=== PATIENT | female | born 1940 | race Caucasian/White ===

== ENCOUNTER → 2023-07-06 12:17 | Outpatient (REF) | payer MEDICARE, SELFPAY ==
[2023-07-06 13:46] LABS: % Basophils 0.6 % (0-2); % Eosinophils 0.3 % (0-6); % Immature Granulocytes 0.2 % (0-0.5); % Lymphocytes 31.3 % (20.5-51.1); % Monocytes 8.3 % (1.7-9.3); % Neutrophils 59.3 % (42.2-75.2); Absolute Monocytes 0.5 10^3/uL (0.1-0.6); Absolute Neutrophils 3.8 10^3/uL (1.4-6.5); Hematocrit 41.2 % (37.0-47.0); Hemoglobin 13.2 g/dL (12.0-16.0); Mean Corpuscular Volume 87.5 fL (81.0-99.0); Mean Platelet Volume 10.1 fL (7.4-10.4); Nucleated Red Blood Cells % 0 %; Platelet Count 219 10^3/uL (130-400); Red Blood Cell Count 4.71 10^6/uL (4.20-5.40); Red Cell Dist. Width 14.4 % (11.5-14.5); White Blood Cell Count 6.4 10^3/uL (4.8-10.8)
[2023-07-06 14:14] LABS: ALT (SGPT) 27 U/L (0-35); AST (SGOT) 35 U/L (14-36); Albumin 4.8 g/dl (3.5-5.0); Alkaline Phosphatase 71 U/L (38-126); Blood Urea Nitrogen 18 mg/dl (7-17); Calcium 9.4 mg/dl (8.4-10.2); Carbon Dioxide 29 mmol/L (22-30); Chloride 99 mmol/L (98-107); Glucose 92 mg/dl (70-99); HDL Cholesterol 83 mg/dl; LDL Cholesterol, Calculated 38 mg/dl; Phosphorus 3.5 mg/dl (2.5-4.5); Potassium 3.7 mmol/L (3.5-5.1); Sodium 140 mmol/L (135-145); Total Bilirubin 0.5 mg/dl (0.2-1.3); Total Cholesterol 138 mg/dl (50-199); Total Protein 7.6 g/dl (6.3-8.2); Triglyceride 88 mg/dl (10-149); Very Low Density Lipoprotein 17 mg/dl (0-30)
[2023-07-06 14:19] LABS: C-Reactive Protein < 5.00 mg/L (0.0-10.00)
[2023-07-06 14:38] LABS: Erythrocyte Sed Rate 12 mm/hour (0-20)
== END ==
LOC: REG 12:17
PROVIDERS: ATTENDING PHYSICIAN Internal Medicine Rheumatology; FAMILY PHYSICIAN Physician Assistant Medical; OTHER PHYSICIAN Internal Medicine Cardiovascular Disease
DX: E78.00 Pure hypercholesterolemia, unspecified (principal); H34.232 Retinal artery branch occlusion, left eye; Z95.3 Presence of xenogenic heart valve; I50.30 Unspecified diastolic (congestive) heart failure; E87.6 Hypokalemia; M06.00 Rheumatoid arthritis without rheumatoid factor, unspecified site; M81.0 Age-related osteoporosis without current pathological fracture
CPT/HCPCS: 36415; 80053; 80061; 84100; 85025; 85652; 86140

== ENCOUNTER 2023-07-23 18:54 | Emergency (ER) | payer MEDICARE, SELFPAY ==
[2023-07-23 18:57] VITALS: BP 92/50; BMI 26.5
[2023-07-23 19:51] LABS: % Basophils 0.5 % (0-2); % Eosinophils 0.9 % (0-6); % Immature Granulocytes 0.5 % (0-0.5); % Lymphocytes 31.4 % (20.5-51.1); % Monocytes 9.7 % (1.7-9.3); Absolute Eosinophils 0.1 10^3/uL (0-0.7); Absolute Monocytes 0.6 10^3/uL (0.1-0.6); Absolute Neutrophils 3.7 10^3/uL (1.4-6.5); Hematocrit 36.5 % (37.0-47.0); Hemoglobin 12.4 g/dL (12.0-16.0); Mean Corpuscular Hgb 28.6 pg (27.0-31.0); Mean Corpuscular Volume 84.3 fL (81.0-99.0); Mean Platelet Volume 9.9 fL (7.4-10.4); Nucleated Red Blood Cells % 0 %; Platelet Count 170 10^3/uL (130-400); Red Blood Cell Count 4.33 10^6/uL (4.20-5.40); Red Cell Dist. Width 14.8 % (11.5-14.5); White Blood Cell Count 6.4 10^3/uL (4.8-10.8)
--- NOTE | 2023-07-23 19:54 | ED.GENMED ---
History of Present Illness
General
Chief Complaint: Urinary Symptoms
Source: patient and family
Exam Limitations: none
Time Seen by Provider: 07/23/23 19:18
Travel History
Have you had any contact with someone who has COVID-19?: No
Do you have any symptoms of coronavirus? Fever > 100 degrees, chills, cough, shortness of breath, sore throat, loss of taste or smell, muscle aches, or headache?: No
History of Present Illness
History of Present Illness:
82-year-old female presents with hematuria. Patient states that she had it about 7 days ago and was placed on an antibiotic. She was placed on Macrobid. It seemed to improve but then came back. During exam she does note some bruising to her
legs. Patient denies headache. No hemoptysis. She also denies dysuria. No urinary frequency. Patient is on aspirin and Plavix. She denies melena or hematochezia.
Past History
Past History
ED Past Medical History: Cancer, CVA, GERD, HTN, Hypercholesterolemia, [place] and Valvular disease
ED Past Surgical History: Cardiac, Gynecological, Orthopedic (Bilateral total knee replacements, left rotator cuff repair) and Other (Carotid endarterectomy)
Social History
Tobacco: Non-smoker
Alcohol: None
Drug: None
Personal:
Living: with family
Family History
Family History: Unable to obtain
Phy Exam
Physical Exam
Physical Exam:
CONSTITUTIONAL Patient alert and oriented to person, place and time. Well-appearing. Vital signs reviewed.
HEAD atraumatic, normocephalic.
EYES eyelids normal to inspection, Pupils equally round and reactive to light, Extraocular muscles intact, Conjunctiva normal, Sclera normal.
NECK normal range of motion, Trachea midline, no jugular venous distention.
RESPIRATORY CHEST No respiratory distress noted, Chest expansion equal
ABDOMEN abdomen nontender, Bowel sounds normal. No distention.
BACK no obvious deformities
UPPER EXTREMITY range of motion normal, Motor strength normal, no cyanosis, no edema.
LOWER EXTREMITY range of motion normal, Motor strength normal, no cyanosis, no edema.
NEURO Speech normal, No focal motor deficits, Preston coma scale 15, Memory normal, Cranial Nerves intact to screening exam.
SKIN skin warm, dry. She does have noted areas of bruising throughout the lower extremities. She also is a large left buttocks hematoma. She has some bruising near her coccyx bone.
Course
Orders/Labs/Results
Orders:
Orders
07/23/23 19:46
Complete Blood Count/With Diff Urgent
Comprehensive Metabolic Panel Urgent
PT/INR [Prothrombin Time] Stat
PTT Stat
07/23/23 20:09
CT Abd/pel Without Iv Or Oral Urgent
Comment:
Reason For Exam: painless hematuria
07/23/23 22:31
Urinalysis Reflex To Culture Urgent
Date Specimen was Collected: 07/23/23
Time Specimen was Collected: 22:29
Urine Microscopic Reflex Cult Urgent
Urine Culture Urgent
SAEED Source: U
Specimen Description:
Date Specimen was Collected: 07/23/23
Time Specimen was Collected: 22:29
Abnormal Lab Results
07/23/23 07/23/23
19:46 22:31
Hct 36.5 L %
(37.0-47.0)
RDW 14.8 H %
(11.5-14.5)
Monocytes % 9.7 H %
(1.7-9.3)
BUN 27 H mg/dl
(7-17)
Creatinine 1.3 H mg/dL
(0.6-1.0)
Glucose 108 H mg/dl
(70-99)
Urine Ketones 1+ A
(Negative)
Ur Occult Blood Reflex 4+ A
(Negative)
Urine Bilirubin 1+ A
(Negative)
Leukocyte Esterase Rfl 1+ A
(Negative)
Urine RBC >100 A /HPF
(0-2)
Urine Glucose 3+ A
(Negative)
Urine Albumin (Reflex) 3+ A
(Neg - Trace)
07/23/23 19:46
07/23/23 19:46
Vital Signs
Initial and Last Documented VS:
Initial Vital Signs
Temp Pulse Resp BP Pulse Ox
97.8 F 60 16 92/50 98
07/23/23 18:57 07/23/23 18:57 07/23/23 18:57 07/23/23 18:57 07/23/23 18:57
Last Documented Vital Signs
Temp Pulse Resp BP Pulse Ox
97.8 F 60 16 118/44 98
07/23/23 18:57 07/23/23 18:57 07/23/23 18:57 07/23/23 22:26 07/23/23 18:57
MDM/Problems Addressed
Differential Diagnosis Includes:
Thrombocytopenia, coagulopathy, blood disorder, bleeding disorder, UTI
MDM/Problems Addressed:
Nephrolithiasis
*Radiology
Radiology exam reviewed: radiology read reviewed
*Pulse Oximetry
Patient hypoxic: no
*Critical Care Note
Total Time (30-74mins, 75-104mins- exclusive of procedures): Not Applicable
Data Reviewed
Source: patient
Prescriptions/Medications Considered But Not Given:
Considered IV antibiotics with patient overall appears well and afebrile
Patient Management
Discussion with other providers: Web Content Developer (Case discussed with Dr Hobson. recommends hold Plavix, cont ASA. will cover with abx. )
Escalation/DeEscalation of care consider admission/obs:
Stable. Cover with antibiotics. Case discussed with urology.
ED Attending Note
-
Portions of this chart may have been created with voice recognition software.� Occasional wrong word or��sound alike� substitutions may have occurred due to the inherent limitations of voice recognition software.
Discharge Plan
Departure
Patient Disposition: Home (Routine Discharge)
Date of Disposition: 07/23/23
Time of Disposition: 23:34
Patient with high blood pressure during this ER visit?: No
Discharge Problem:
Hematuria, Nephrolithiasis
Instructions: Kidney Stones (DC), Blood in the Urine (Hematuria), Adult (DC)
Prescriptions:
New
cefuroxime axetil 250 mg tablet
250 mg PO BID 7 Days Qty: 14 0RF
No Action
metoprolol succinate 25 MG tablet extended release 24 hr
25 mg PO HS
hydroxychloroquine 200 MG tablet
200 mg PO BID
rosuvastatin 10 MG tablet
10 mg PO DAILY
cholecalciferol (vitamin D3) 2,000 UNITS tablet
2,000 units PO DAILY
acetaminophen 325 MG tablet
325 mg PO Q6H PRN (Reason: moderate pain) Qty: 30 0RF
furosemide 40 mg Tablet
40 mg PO DAILY Qty: 30 0RF
clopidogrel 75 MG tablet
75 mg PO DAILY Qty: 30 1RF
aspirin 81 MG tablet,delayed release (DR/EC)
81 mg PO DAILY Qty: 0 0RF
Referrals:
Naty Mcclelland PA-C [Family Provider] -
Cheo Hobson MD [Active] -
Activity Restrictions/Additional Instructions:
Please see your doctor and urology in the next 3 days for follow-up and reevaluation. Please hold your Plavix until your bloody urine resolves. Return immediately for intractable vomiting, pain, fevers or any other concerns
Interventions
Interventions:
*Risk Screen - Suicide Last Done: 07/23/23 18:57
*General Assessment Last Done: 07/23/23 19:47
*Neglect/Abuse Screening Last Done: 07/23/23 18:57
ED- Fall Risk Assessment Last Done: 07/23/23 23:02
*ED COVID-19 Vaccine History Last Done: 07/23/23 18:57
ED-Female Genitourinary Assessment Last Done: 07/23/23 19:48
Discharge Date and Time
Print Language: NAMIBIAN
[2023-07-23 20:01] LABS: INR 1.06; PT 13.7 Sec (11.4-14.6)
[2023-07-23 20:02] LABS: APTT 29.2 Sec (23.4-35.0)
[2023-07-23 20:04] LABS: ALT (SGPT) 21 U/L (0-35); AST (SGOT) 33 U/L (14-36); Albumin 4.5 g/dl (3.5-5.0); Alkaline Phosphatase 61 U/L (38-126); Blood Urea Nitrogen 27 mg/dl (7-17); Calcium 9.8 mg/dl (8.4-10.2); Carbon Dioxide 29 mmol/L (22-30); Chloride 98 mmol/L (98-107); Estimated Creatinine Clearance 31 ml/min; Glucose 108 mg/dl (70-99); Sodium 136 mmol/L (135-145); Total Bilirubin 0.6 mg/dl (0.2-1.3); eGFR 41.57
[2023-07-23 22:26] VITALS: BP 118/44
[2023-07-23 22:39] LABS: Urine Albumin 3+ (Neg - Trace); Urine Bilirubin 1+ (Negative); Urine Character Slightly Cloudy (Clear); Urine Color Amber; Urine Glucose 3+ (Negative); Urine Ketone 1+ (Negative); Urine Leukocyte 1+ (Negative); Urine Nitrite Negative (Negative); Urine Occult Blood 4+ (Negative); Urine Urobilinogen Negative (Neg - 1+)
[2023-07-23 22:47] LABS: Urine Red Blood Cell >100 /HPF (0-2)
[2023-07-24] MEDS: CEFTIN 500 MG PO (00:22)
== END 2023-07-24 00:37 | disposition home or self-care (01) ==
LOC: EMR 18:54
PROVIDERS: EMERGENCY PHYSICIAN Emergency Medicine; FAMILY PHYSICIAN Physician Assistant Medical
DX: R31.9 Hematuria, unspecified (principal); N20.0 Calculus of kidney; K21.9 Gastro-esophageal reflux disease without esophagitis; I10 Essential (primary) hypertension; E78.00 Pure hypercholesterolemia, unspecified; I25.2 Old myocardial infarction; I38 Endocarditis, valve unspecified; Z79.02 Long term (current) use of antithrombotics/antiplatelets; Z79.82 Long term (current) use of aspirin; Z86.73 Personal history of transient ischemic attack (TIA), and cerebral infarction without residual deficits; Z96.653 Presence of artificial knee joint, bilateral
CPT/HCPCS: 99284; 74176; 80053; 81003; 81015; 85025; 85610; 85730; 87086

== ENCOUNTER 2023-08-02 06:55 | Day surgery (SDC) | payer MEDICARE, SELFPAY ==
[2023-08-02] VITALS (8 sets, daily range): BP systolic 97–113; BP diastolic 44–68; BMI 28.4
[2023-08-02] MEDS: NORMOSOL-R 1000 IV (13:16)
[2023-08-02] MEDS: TYLENOL 1000 MG PO (13:16)
[2023-08-02] MEDS: Pyridium 200 MG PO (14:57)
[2023-08-02] MEDS: DETROL LA 4 MG PO (14:57)
== END 2023-08-02 16:20 | disposition home or self-care (01) ==
LOC: SDS 06:55
PROVIDERS: ATTENDING PHYSICIAN Surgery
DX: N13.30 Unspecified hydronephrosis (principal); Z87.442 Personal history of urinary calculi
CPT/HCPCS: 52332; 74018; 76000; A4300; C1758; C1769; C1894; C2617

== ENCOUNTER 2023-08-03 15:15 | Inpatient (IN) | payer MEDICARE, SELFPAY ==
[2023-08-03] VITALS (16 sets, daily range): BP systolic 85–143; BP diastolic 39–80; BMI 28.5; BMI 30.2
--- NOTE | 2023-08-03 09:51 | ED.GENMED ---
History of Present Illness
General
Chief Complaint: Post Operative Problem(s)
Source: patient
Exam Limitations: none
Time Seen by Provider: 08/03/23 09:28
Travel History
Have you had any contact with someone who has COVID-19?: No
Do you have any symptoms of coronavirus? Fever > 100 degrees, chills, cough, shortness of breath, sore throat, loss of taste or smell, muscle aches, or headache?: No
History of Present Illness
History of Present Illness:
Patient with right laser ureteral stone surgery yesterday with stent placement. Ongoing hematuria. Passing clots. Not improving today. No fever or chills. No significant abdominal pain. Some vague back pain.
Past History
Past History
ED Past Medical History: Cancer, CVA, GERD, HTN, Hypercholesterolemia, [place] and Valvular disease
ED Past Surgical History: Cardiac, Gynecological, Orthopedic (Bilateral total knee replacements, left rotator cuff repair) and Other (Carotid endarterectomy)
Social History
Tobacco: Non-smoker
Alcohol: None
Drug: None
Personal:
Living: with family
Family History
Family History: Unable to obtain
Review of Systems
Review of Systems
All Other Systems: Not applicable
Constitutional: Denies fever or chills
Respiratory: Reports no symptoms
Cardiac: Reports no symptoms
Phy Exam
Physical Exam
Physical Exam:
GENERAL: Alert and oriented in no apparent distress
EYE: Orbits normal.
NECK: Supple
CARDIAC: Regular rate and rhythm without any obvious murmurs.
LUNGS: Clear breath sounds,normal
ABDOMEN: Soft, bowel sounds present. Questionable minimal pubic fullness. No rebound or guarding no mass or hernia
NEUROLOGICAL: Alert and oriented , grossly non-focal
SKIN: Warm and dry, no rash or lesion, no discoloration, skin intact.
MUSCULOSKELETAL: No edema,no deformity.Good color
PSYCH: Normal and appropriate interaction.
Course
Orders/Labs/Results
Orders:
Orders
08/03/23 Breakfast
Cholesterol Lowering
At Your Request: Full Participation
Cholesterol Lowering: Sodium, 2 Gram
08/03/23 09:29
Cardiac Monitoring- Treatment ONCE
08/03/23 09:30
IV Insert/Care/Rem.- Treatment PRN
08/03/23 10:24
Type+Screen Urgent
Basic Metabolic Panel Urgent
Complete Blood Count/With Diff Urgent
Glycohemoglobin (HgbA1c) Urgent
08/03/23 11:30
0.9% Sodium Chloride 500 ml [Nss] 500 ml IV BOLUS
08/03/23 11:46
Urinalysis Reflex To Culture Urgent
Date Specimen was Collected: 08/03/23
Time Specimen was Collected: 11:41
Urine Microscopic Reflex Cult Urgent
08/03/23 12:24
Acetaminophen [Tylenol] 650 mg PO NOW STA
08/03/23 14:28
CefTRIAXone [Rocephin] 1,000 mg IV NOW STA
08/03/23 14:49
0.9% Sodium Chloride 500 ml [Nss] 500 ml IV BOLUS
08/03/23 14:50
Blood Culture Q30M
SAEED Source: Blood/Venous
Specimen Description:
Blood Culture Q30M
SAEED Source: Blood/Venous
Specimen Description:
08/03/23 14:59
Admit/Transfer Patient As Directed
Co-Sign Provider:
Level of Care: Inpatient admission
Assign to:: IMU- Intermediate Care
Physician / Group: chris singh
Diagnosis: hematuria
Reason for Hospitalization: hematuria
Expected length of stay greater than two midnights?: Yes
ELOS- Estimated Length of Stay in days: 3
I certify the patient meets the requirements for IP care: Yes
08/03/23 15:01
Code Status As Directed
Resuscitation Status: Full Code
08/03/23 15:05
EKG [Electrocardiogram (*1)] Stat
Reason for Study: Chest Pain
08/03/23 15:11
CARDIOLOGY CONSULT Routine
Consulting Provider: Claude Felton
Was physician already notified: Yes
08/03/23 15:43
Troponin I Stat
08/03/23 16:26
0.9% Sodium Chloride 1000 ml [Nss] 1,000 ml IV 60 mls/hr
Acetaminophen [Tylenol] 325 mg PO HSPRN PRN
Bisacodyl [Dulcolax] 10 mg RECTAL [id number] PRN
Diclofenac 1% Topical Gel 2 gram TOPICAL TIDPRN PRN
Apply 2 or 4 grams as per protocol to the following joints:: Other joint(s)
Other joint/location to apply to:: back
Grams to be applied to other indicated joint/location:: 2
Docusate W/Senna [Senokot-S] 1 tablet PO BIDPRN PRN
Polyethylene Glycol Powder [Miralax] 17 grams PO DAILYPRN PRN
08/03/23 16:26
CARDIOLOGY CONSULT Routine
Consulting Provider: Claude Felton
Was physician already notified: Yes
Activity As Directed
Activity Level: As Tolerated
Continous Bladder Irrigation As Directed
Solution: saline
INT (Intravenous Needle Therapy) As Directed
Comment: maintain peripheral IV access
Intake/ Output As Directed
Frequency: Per unit guidelines
Pneumatic Compression Sleeves As Directed
Type: Knee high
Vital Signs As Directed
Frequency: Per unit guidelines
Vital Signs As Directed
Frequency: q4h
Weight As Directed
Frequency: Weekly
Pt Eval And Treat Routine
Activity Level: As Tolerated
DX Deep Vein Thrombosis Video Routine
08/03/23 18:00
Rosuvastatin Calcium [Crestor] 20 mg PO Q48H
08/03/23 20:00
Hydroxychloroquine [Plaquenil] 200 mg PO BID
08/03/23 21:39
Troponin I Q3H
Comment: at admit & Q3H for 3 total including ED draws, obtain ECG with each level
08/04/23 05:14
Basic Metabolic Panel IN AM
Cardiovascular Evaluation IN AM
Complete Blood Count/No Diff IN AM
08/04/23 08:00
Potassium Chloride [KCl] 20 meq PO DAILY
08/04/23 18:00
Rosuvastatin Calcium [Crestor] 10 mg PO Q48H
08/05/23 06:00
Basic Metabolic Panel IN AM
Complete Blood Count/No Diff IN AM
08/06/23 06:00
Basic Metabolic Panel IN AM
Complete Blood Count/No Diff IN AM
08/07/23 06:00
Basic Metabolic Panel IN AM
Complete Blood Count/No Diff IN AM
08/08/23 06:00
Complete Blood Count/No Diff IN AM
Abnormal Lab Results
08/03/23 08/03/23
10:24 11:46
RBC 3.58 L 10^6/uL
(4.20-5.40)
Hgb 10.3 L g/dL
(12.0-16.0)
Hct 30.8 L %
(37.0-47.0)
RDW 15.6 H %
(11.5-14.5)
Absolute Lymphs (auto) 1.1 L 10^3/uL
(1.2-3.4)
Absolute Monos (auto) 0.8 H 10^3/uL
(0.1-0.6)
Lymphocytes % 17.1 L %
(20.5-51.1)
Monocytes % 11.6 H %
(1.7-9.3)
Carbon Dioxide 31 H mmol/L
(22-30)
BUN 22 H mg/dl
(7-17)
Creatinine 1.3 H mg/dL
(0.6-1.0)
Urine Ketones 1+ A
(Negative)
Ur Occult Blood Reflex 3+ A
(Negative)
Urine RBC >100 A /HPF
(0-2)
Urine Albumin (Reflex) 3+ A
(Neg - Trace)
08/03/23 10:24
08/03/23 10:24
Vital Signs
Initial and Last Documented VS:
Initial Vital Signs
Temp Pulse Resp BP Pulse Ox
98.1 F 73 20 90/68 98
08/03/23 09:18 08/03/23 09:18 08/03/23 09:18 08/03/23 09:18 08/03/23 09:18
Last Documented Vital Signs
Temp Pulse Resp BP Pulse Ox
98.5 F 68 14 87/53 94
08/04/23 03:30 08/04/23 06:02 08/04/23 06:02 08/04/23 06:02 08/04/23 06:02
MDM/Problems Addressed
Differential Diagnosis Includes:
Patient with ongoing hematuria passing clots. Clinically slightly unsure about retention. Discussed with urology. Three-way Galvan. They will evaluate
*Critical Care Note
Total Time (30-74mins, 75-104mins- exclusive of procedures): Not Applicable
Data Reviewed
Review of Other/Old Records Reveals: Labs, Records, Radiology Studies and Operative Reports
Update Note
Update Note:
1430... Blood pressures remain low. However patient is nontoxic. Nothing at this point points to infectious issues. Apparently she does run low blood pressures during procedure like issues. Will do blood cultures and cover with antibiotics at
this time however
ED Attending Note
-
Portions of this chart may have been created with voice recognition software.� Occasional wrong word or��sound alike� substitutions may have occurred due to the inherent limitations of voice recognition software.
Discharge Plan
Departure
Patient Disposition: Admit
Date of Disposition: 08/03/23
Time of Disposition: 12:35
Presentation/result/management discussed w/ accepting MD/DO: urology
Discharge Problem:
Ongoing hematuria, Dislodged ureteral stent, Recent kidney stone
Interventions
Interventions:
*Risk Screen - Suicide Last Done: 08/03/23 09:18
*General Assessment Last Done: 08/03/23 09:18
*Neglect/Abuse Screening Last Done: 08/03/23 10:15
ED- Fall Risk Assessment Last Done: 08/03/23 16:36
*ED COVID-19 Vaccine History Last Done: 08/03/23 10:15
*Nursing Disposition Last Done: 08/03/23 16:36
ED-Skin Assessment Last Done: 08/03/23 10:00
Discharge Date and Time
Discharge Date/Time: 08/03/23 16:37
[2023-08-03 10:31] LABS: % Basophils 0.3 % (0-2); % Eosinophils 0.3 % (0-6); % Immature Granulocytes 0.3 % (0-0.5); % Lymphocytes 17.1 % (20.5-51.1); % Monocytes 11.6 % (1.7-9.3); % Neutrophils 70.4 % (42.2-75.2); Absolute Lymphocytes 1.1 10^3/uL (1.2-3.4); Absolute Monocytes 0.8 10^3/uL (0.1-0.6); Absolute Neutrophils 4.6 10^3/uL (1.4-6.5); Hematocrit 30.8 % (37.0-47.0); Hemoglobin 10.3 g/dL (12.0-16.0); Mean Corp Hgb Conc. 33.4 g/dL (33.0-37.0); Mean Corpuscular Hgb 28.8 pg (27.0-31.0); Mean Platelet Volume 9.9 fL (7.4-10.4); Nucleated Red Blood Cells % 0 %; Platelet Count 224 10^3/uL (130-400); Red Blood Cell Count 3.58 10^6/uL (4.20-5.40); Red Cell Dist. Width 15.6 % (11.5-14.5); White Blood Cell Count 6.5 10^3/uL (4.8-10.8)
[2023-08-03 11:06] LABS: Blood Urea Nitrogen 22 mg/dl (7-17); Calcium 9.5 mg/dl (8.4-10.2); Carbon Dioxide 31 mmol/L (22-30); Chloride 100 mmol/L (98-107); Glucose 91 mg/dl (70-99); Potassium 4.4 mmol/L (3.5-5.1); Sodium 138 mmol/L (135-145); eGFR 41.57
[2023-08-03] MEDS: NSS 500 IV ×2 (11:43→14:49)
[2023-08-03 12:06] LABS: Urine Albumin 3+ (Neg - Trace); Urine Bilirubin Negative (Negative); Urine Character Bloody (Clear); Urine Color Red; Urine Glucose Negative (Negative); Urine Ketone 1+ (Negative); Urine Leukocyte Negative (Negative); Urine Nitrite Negative (Negative); Urine Occult Blood 3+ (Negative); Urine Specific Gravity 1.015 (<1.030); Urine Urobilinogen Negative (Neg - 1+)
[2023-08-03] MEDS: TYLENOL 650 MG PO (12:26)
[2023-08-03 12:34] LABS: Urine Red Blood Cell >100 /HPF (0-2)
--- NOTE | 2023-08-03 14:31 | HPS.HSE ---
Addendum entered and electronically signed by All Forte MD 08/03/23 15:33:
I saw and examined the patient.
The OUTSIDE UPHOLSTERER or PA's note was reviewed and I agree with the note.
Comment: At the time of my examination the patient is relating some substernal chest discomfort that she states she has had throughout most of the day although it has been intermittent ever since she has had the onset of her hematuria she has a
history of aortic valve replacement('Cow valve') and states she has been on Plavix and aspirin for some time ever since she was told she had a CVA also has carotid artery stenosis by history there is no documentation of any coronary artery disease
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 See that her hemoglobin has dropped a couple grams from baseline in the setting of her ongoing hematuria she remains hypotensive in spite of initiation of fluid resuscitation but
also has a history of preserved EF heart failure and will need to be cautious with fluid management overnight would err on the side of caution and admit her to intermediate care unit and cardiology involvement since we will have to continue holding
her clopidogrel and aspirin in the setting of her hematuria and also her beta-milka in the setting of her continued hypotension. Continue CBI as per urology. I would also get a type and screen and have her sign consent for blood especially
should her hypotension and substernal chest pressure continue awaiting troponin and EKG to be performed in ED . Otherwise have reviewed context of assessment and plan and agreed on and discussed with PA also went over treatment plan and need for
transfer to IMU with family at bedside.
Original Note:
Family Physician
-
Family Physician: Pola Aceves
Chief Complaint
-
bloody urine
History of Present Illness
82-year-old with past medical history for CVA, GERD, hypotension, hyperlipidemia, [place], valvular disease presented to us with hematuria and clots. Patient underwent right laser ureteral stone surgery yesterday with stent placement. Patient stated
bloody urine associate with clots. Patient complained of incontinence of bloody urine and burning sensation patient also complained of lower abdominal pain. Denied fever but stated chills. Patient denied any headache, dizziness, syncopal episode.
Patient denied chest pain or short of breath. Patient denied nausea, vomiting, diarrhea.
Hemoglobin 10.3. Started on continuous bladder irrigation. Patient was evaluated by urologist. Admitting for further management
Patient hypotensive in ER. Patient received a normal saline and ceftriaxone in ER.
Medical History
Past Medical History
Past Medical History: Reports None and Other
Additional Past Medical History:
Urinary tract infection
Hypertension
Hyperlipidemia
Aortic valve stenosis
Amezcua's esophagus
Rheumatoid arthritis
Kidney stones
Osteoporosis
Bilateral carotid stenosis
Parathyroid adenoma
Past Surgical History: Reports Other
Additional Past Surgical History:
Status post aortic valve replacement with bioprosthetic valve
Total hysterectomy
Bilateral total knee replacement
Left rotator cuff repair
Left carotid endarterectomy
Bilateral cataract surgery
Social History
Tobacco: Non-smoker
Alcohol: None
Drug: None
Family History
Family History: Not pertinent
Allergies / Home Medications
Allergies reflects when Allergies were last updated in [facility].
Home Medications with original date entered in [facility]
Allergy/Medication List:
Allergies
Allergy/AdvReac Type Severity Reaction Status Date / Time
oxycodone Allergy Mild Itching Verified 08/02/23 12:30
atorvastatin Allergy joint pain Verified 08/02/23 12:30
latex [Latex] Allergy swelling,itching, Verified 08/02/23 12:30
rash
Home Medications
hydroxychloroquine 200 mg tablet 200 mg PO BID rheumatoid arthritis 07/17/21
metoprolol succinate 25 mg tablet,extended release 24 hr 25 mg PO HS Heart disease/condition 07/17/21
rosuvastatin 10 mg tablet 10 mg PO Q48H@1800 High cholesterol 07/17/21
furosemide 40 mg tablet 40 mg PO DAILY Fluid retention/Swelling #30 tabs 08/15/22
aspirin 81 mg tablet,delayed release 81 mg PO .SEE BELOW Blood clot prevention/tx 07/29/23
potassium chloride 20 mEq tablet,extended release 20 meq PO DAILY@1100 07/29/23
rosuvastatin 20 mg tablet 20 mg PO Q48H@1800 07/29/23
acetaminophen 325 mg tablet 325 mg PO HSPRN PRN mild pain 08/03/23
clopidogrel 75 mg tablet 75 mg PO .SEE BELOW Blood clot prevention/tx 08/03/23
dapagliflozin propanediol 10 mg tablet (Farxiga) 10 mg PO .SEE BELOW 08/03/23
diclofenac sodium 1 % topical gel 2 g topical TIDPRN PRN apply to back of neck 08/03/23
metronidazole 1 % topical gel 1 applic topical DAILY PRN apply to back of neck 08/03/23
Review of Systems
-
Constitutional: Reports No Symptoms
EENT: Reports No Symptoms
Respiratory: Reports No Symptoms
Cardiac: Reports No Symptoms
Abdomen/GI: Reports No Symptoms
: Reports Urgency and Bleeding
Musculoskeletal: Reports No Symptoms
Skin: Reports No Symptoms
Neurological: Reports No Symptoms
Endocrine: Reports No Symptoms
Hematologic/Lymphatic: Reports No Symptoms
Psych: Reports No Symptoms
Physical Exam
Vital Signs
Vital Signs
Temp Pulse Resp BP Pulse Ox
98.1 F 60 14 105/56 99
08/03/23 09:18 08/03/23 13:45 08/03/23 13:45 08/03/23 13:00 08/03/23 13:45
Physical Exam
General: Well Developed, Well Nourished and No Apparent Distress
HEENT: NormoCephalic, Moist mucous membranes and Atraumatic
Respiratory: Clear
Cardiac: S1/S2 and Regular Rhythm; No Murmur or Rub
GI: Soft, Non Distended, Normal Bowel Sounds and Tender; No Organomegaly
Rectal: Deferred by Provider
Genito-urinary: Continuous Bladder Irrigation
Musculoskeletal: No Clubbing, No Cyanosis and No Edema
Skin: No Rash
Neuro: AO x 3 and Nonfocal/grossly intact
Psych: Calm
Laboratory Results
-
08/03/23 10:24
08/03/23 10:24
Data Reviewed
-
Lab Data: Labs Reviewed by me
Impression/Plan
-
# Anemia likely from hematuria
-Hemoglobin stable at 10.3
-Trend hemoglobin
-Continue bladder irrigation
-Urology consulted
# Chronic kidney disease stage IIIb
-Creatinine 1.3
-Continue to monitor
# History of hypotension
-Blood pressure low in ER
-Continue to monitor
#chest pain
-obtain trop, EKG
-cardiology consulted
#chronic heart failure with preserved ejection fraction
-Patient is not in acute exacerbation
-Hold Lasix due to hypotension
-Hold metoprolol
-Echo 08/13/2022-normal LV size, EF 63%. Mild to moderate MR. Normally functioning bioprosthetic valve. Moderate to severe TR
-For history of continued
#Hypertension-
-hold metoprolol
-Blood pressure soft in ER
#Hyperlipidemia continue statin
#H/O retinal artery occlusion
#History of left carotid endarterectomy
#History of arctic valve replacement 2015
#History of stroke
-Hold Plavix and aspirin due to hematuria.
#Chronic back pain
-Diclofenac continued
#GERD
#Rheumatoid arthritis/osteoarthritis/osteoporosis/kyphosis/DJD
Continue Plaquenil
#History of lumpectomy for breast cancer
#DVT prophylaxis-subcutaneous SCD
# Full code
[2023-08-03] MEDS: ROCEPHIN 1000 MG IV (14:37)
--- NOTE | 2023-08-03 15:40 | CON.CAR ---
Addendum entered and electronically signed by Claude Felton MD 08/03/23 17:28:
I saw and examined the patient.
The HOT STRIP MILL SUPERVISOR's note was reviewed and I agree with the note.
82-year-old woman with a history of bioprosthetic aortic valve replacement 2015, left CEA 2021, CVA heart failure with preserved ejection fraction hypertension hypercholesterolemia and sleep apnea who had a urologic for kidney stones with ureter
stent placement.. Last night she had some in the expectation was that it was going to improve over time but she is continue to have significant hematuria today which is prompted admission. . in addition to the above she is low-grade chest
sensation which was present last night and has been in the background today nothing particularly makes it better or worse. She has had this sensation before and she thinks she tends to get it when she is a bit upset.. She has had this chest
sensation before. She had a Lexiscan nuclear perfusion stress test 10/2022 with no evidence of myocardial ischemia. Despite prolonged symptoms first troponin is negative and ECG without ischmeic changes
-Monitor ECGs and troponins.
-Patient is already on aspirin. No additional anticoagulation with ongoing hematuria.
-Continue low-dose metoprolol BP limits further increase
-Treat hematuria -as directed by urology. Monitor hemoglobin and assess the need for PRBC.
-Currently respiratory status is stable. Monitor for clinical signs of heart failure.
Original Note:
Consultation
Consultation Request
Date/Time Consultation Requested: 08/03/23 15:11
Date/Time Consultation Performed: 08/03/23 15:40
Requesting Provider: LUIS ARMANDO Roman
Performing Provider: LUIS ARMANDO Ibarra for Dr. Felton
Reason for Consultation: Chest pain
Medical History
-
Chief Complaint: Hematuria
History of Present Illness:
Joy Hernandez is a 82-year-old female (known to Dr. Owen, her primary software publisher), with #21 bovine bioprosthetic aortic valve replacement (2015), left carotid stenosis s/p CEA (2021), CVA, HFpEF, RBBB, hypertension, dyslipidemia,
untreated MANUELA, and RA who presented to the emergency department with a chief complaint of hematuria. She underwent right laser ureteral stone surgery yesterday with stent placement. She has been incontinent of bloody urine with clots. While in
the emergency department she endorsed chest pain for which cardiology has been consulted. She describes her chest discomfort as a pressure. It is midsternal and anterior. It does not radiate. She denies associated symptoms of nausea,
diaphoresis, and dizziness. She does appear flushed on exam.
Past Medical History
Past Medical History: Arrhythmias (SVT), Cancer (breast), CHF, CVA, HTN, Hypercholesterolemia, Valvular Disease (AVR) and Other (MANUELA, S/p CEA, RBBB)
Past Surgical History: Cardiac, Gynecological and Orthopedic
Social History
Tobacco: Non-Smoker
Alcohol: None
Drug: None
Personal:
Living: With Family
Family History
Family History: Reviewed & Not Pertinent
Allergies / Home Medications
Allergy/AdvReac Type Severity Reaction Status Date / Time
oxycodone Allergy Mild Itching Verified 08/02/23 12:30
atorvastatin Allergy joint pain Verified 08/02/23 12:30
latex [Latex] Allergy swelling,itching, Verified 08/02/23 12:30
rash
�Medication �Instructions �Recorded �Confirmed �Type
hydroxychloroquine 200 mg tablet 200 mg PO BID rheumatoid arthritis 07/17/21 08/03/23 History
metoprolol succinate 25 mg 25 mg PO HS Heart disease/condition 07/17/21 08/03/23 History
tablet,extended release 24 hr
rosuvastatin 10 mg tablet 10 mg PO Q48H@1800 High cholesterol 07/17/21 08/03/23 History
furosemide 40 mg tablet 40 mg PO DAILY Fluid 08/15/22 08/03/23 Rx
retention/Swelling #30 tabs
aspirin 81 mg tablet,delayed 81 mg PO .SEE BELOW Blood 07/29/23 08/03/23 History
release clot prevention/tx
potassium chloride 20 mEq 20 meq PO DAILY@1100 07/29/23 08/03/23 History
tablet,extended release
rosuvastatin 20 mg tablet 20 mg PO Q48H@1800 07/29/23 08/03/23 History
acetaminophen 325 mg tablet 325 mg PO HSPRN PRN mild pain 08/03/23 08/03/23 History
clopidogrel 75 mg tablet 75 mg PO .SEE BELOW Blood 08/03/23 08/03/23 History
clot prevention/tx
dapagliflozin propanediol 10 mg 10 mg PO .SEE BELOW 08/03/23 08/03/23 History
tablet (Farxiga)
diclofenac sodium 1 % topical gel 2 g topical TIDPRN PRN apply to 08/03/23 08/03/23 History
back of neck
metronidazole 1 % topical gel 1 applic topical DAILY PRN apply 08/03/23 08/03/23 History
to back of neck
Review of Systems
-
History Source: Patient
All other systems: Negative unless noted
Respiratory: No Symptoms
Cardiac: Chest Pain
Abdomen/GI: No Symptoms
: Incontinence and Bleeding
Physical Exam
Vital Signs
Temp Pulse Resp BP Pulse Ox
98.1 F 72 22 95/46 99
08/03/23 09:18 08/03/23 15:31 08/03/23 15:31 08/03/23 15:31 08/03/23 15:15
Lab Results
08/03/23 10:24
08/03/23 10:24
Physical Exam
General: Well Developed, Well Nourished and No Apparent Distress
HEENT: Normocephalic and Moist Mucous Membranes
Respiratory: Clear and Non Labored Respirations
Cardiac: S1/S2, Regular Rhythm and Murmur (II/)
Breast: Deferred by me
GI: Soft, Non Tender and Normal Bowel Sounds
Rectal: Deferred by Provider
Genito-urinary: No Costovertebral Tender
Musculoskeletal: No Clubbing, No Cyanosis and No Edema
Skin: Warm, Dry and Other (flushed)
Neuro: AO x 3
Hematologic/Lymphatic: No Lymphadenopathy
Psych: Calm
Impression / Plan
-
Chest pressure
-Lasted about 5 minutes
-EKG now with troponin & trend
-She has been maintained on ASA
-TTE
Anemia, in the setting of hematuria
-S/P ureteral stone surgery with stent placement yesterday, 08/02/2023
-CBI per Urology
-Clopidogrel has been on hold
HFpEF, chronic
-She received IV fluids
-Furosemide on hold, may need intravenous furosemide if she requires blood
-Follow daily weight, I/Os, and BMP
Severe aortic stenosis S/P #21 bovine bioprosthetic AVR (2015), peak/mean gradients 12/6 mmHg (07/2022)
Mild to moderate mitral regurgitation
Carotid artery stenosis S/p CEA (2021)
CVA 2/2 to CEA, DAPT on hold
RBBB, chronic
HTN, medications on hold in the setting of hypotension
HLD
CKD3b
Data Reviewed
-
Medical Tests (Nuc Med, Echo etc): Report Reviewed by me (TTE as above)
Labs: Labs Reviewed by me
Old Records: Reviewed
--- NOTE | 2023-08-03 16:19 | W.PN.URO.CBU ---
Today's Communication / Plan
-
- Right ureteral stent removed at bedside
- Continue CBI to keep urine clot-free and clear
- Hold aspirin 81 mg (IF cleared by Cardiology)
- Send UA/UCx to r/o UTI
- RBUS ordered to assess upper/lower urinary tracts
Discussed plan of care with patient and son (Donald).
Assessment / Plan
-
Gross hematuria w/ clot retention
Active antiplatelet therapy
Hypotension
08/01: s/p right ureteroscopy + stent placement (uncomplicated, on ASA 81 mg through procedure)
Plavix held >7 days preoperatively with continuation of aspirin through surgery due to cardiovascular risk factors.
Right ureteral stent REMOVED at bedside w/o event (displaced distally).
3-way 20Fr silastic catheter placed => dark wine-colored urine output
CBI initiated in ER
Diagnosis
-
Date of Service: August 03, 2023
-
Patient Diagnosis:
Gross hematuria w/ clots
Post Op Day:
08/01: s/p right ureteroscopy + stent placement (uncomplicated, on ASA 81 mg through procedure)
Subjective
-
Feels well.
Noted worsening hematuria this morning w/ passage of clots.
Denies suprapubic pain/pressure.
Objective
-
Vital Signs
Temp Pulse Resp BP Pulse Ox
98.1 F 65 24 143/80 100
08/03/23 09:18 08/03/23 15:45 08/03/23 16:00 08/03/23 16:00 08/03/23 15:45
Intake and Output
08/02/23 08/03/23 08/04/23
06:59 06:59 06:59
Output Total -50 / -50
Balance 50 / 50
Output:
True Urine Output from CBI -50 / -50
Laboratory Results
08/03/23 10:24
08/03/23 10:24
Physical Exam
-
General - well developed, well nourished, no acute distress
Abdomen - soft, non-tender, no suprapubic tenderness/distention
Genitalia - normal, distal curl (bluish-green) emanating from urethral meatus
Skin - warm & dry with no rash
Neuro - AOx3, no motor deficits
Extremities - no clubbing, no cyanosis, no edema
Care Review
Data Reviewed
Discussed with: Hospitalist and Family
Total Time Spent with Patient (in minutes): 35
[2023-08-03 16:22] LABS: Troponin I 0.016 ng/ml
[2023-08-03] MEDS: NSS 1000 IV (17:30)
[2023-08-03] MEDS: PROTONIX 40 MG PO (17:38)
[2023-08-03] MEDS: CRESTOR 20 MG PO (17:38)
[2023-08-03] MEDS: TYLENOL 325 MG PO (20:56)
[2023-08-03] MEDS: PLAQUENIL 200 MG PO (20:56)
[2023-08-03 22:12] LABS: Troponin I 0.028 ng/ml
[2023-08-03] MEDS: MELATONIN 3 MG PO (22:30)
--- NOTE | 2023-08-03 23:04 | PTCARENOTE ---
assumed care of patient, 3-way CBI infusing, blood tinged urine noted, pt with no c/o pain, only complaint is chronic back pain. pt asking for heating pad, covering SENIOR ACCOUNTS PAYABLE SPECIALIST notified and k-pad ordered. pt able to get OOB to BSCx1 assist.
[2023-08-04] VITALS (31 sets, daily range): BP systolic 66–137; BP diastolic 34–100; PULSE 66; BMI 30.2
[2023-08-04] MEDS: SENOKOT-S 1 TABLET PO (00:13)
--- NOTE | 2023-08-04 04:44 | DOWNTIME ---
There was a [employer] Client Reworker Downtime on 08/04/2023 from 0100 to 08/04/2023 at 0439. Downtime documentation of patient's care, including medication administrations, has been reconciled in the electronic record per guidelines. Refer to the
patient's paper chart under the miscellaneous tab to see printed paper medication records and downtime forms.
--- NOTE | 2023-08-04 05:10 | PTCARENOTE ---
pt did have a period of oxygen dropping to 69% while sleeping, once woken up oxygen went back up to 97% RA.
[2023-08-04 05:29] LABS: Hematocrit 30.6 % (37.0-47.0); Hemoglobin 9.9 g/dL (12.0-16.0); Mean Corp Hgb Conc. 32.4 g/dL (33.0-37.0); Mean Corpuscular Hgb 28.4 pg (27.0-31.0); Mean Corpuscular Volume 87.7 fL (81.0-99.0); Mean Platelet Volume 10.2 fL (7.4-10.4); Platelet Count 204 10^3/uL (130-400); Red Blood Cell Count 3.49 10^6/uL (4.20-5.40); Red Cell Dist. Width 15.9 % (11.5-14.5); White Blood Cell Count 9.5 10^3/uL (4.8-10.8)
[2023-08-04 05:59] LABS: Blood Urea Nitrogen 26 mg/dl (7-17); Calcium 8.9 mg/dl (8.4-10.2); Carbon Dioxide 24 mmol/L (22-30); Chloride 104 mmol/L (98-107); Estimated Creatinine Clearance 26 ml/min; Glucose 119 mg/dl (70-99); HDL Cholesterol 59 mg/dl; LDL Cholesterol, Calculated 27 mg/dl; Potassium 4.3 mmol/L (3.5-5.1); Sodium 137 mmol/L (135-145); Total Cholesterol 102 mg/dl (50-199); Triglyceride 81 mg/dl (10-149); Very Low Density Lipoprotein 16 mg/dl (0-30); eGFR 35.01
[2023-08-04] MEDS: ProAmatine 5 MG PO ×3 (06:33→19:52)
--- NOTE | 2023-08-04 06:35 | PTCARENOTE ---
pt with soft BP's on and off throughout the night, pt is asymptomatic, notified covering VOYAGE MANAGEMENT SYSTEM OPERATOR- orders entered for PO midodrine, medication given. Dr. Forte also notified of the above. care ongoing.
--- NOTE | 2023-08-04 06:49 | W.PN.HOSP.TC ---
Today's Communication/Plan
-
Remains hypertensive/to get 1 dose of midodrine this morning
Otherwise hemodynamically remained stable she signed blood consent last night but no present need for transfusion
Continue to hold beta-milka and furosemide
Continue to hold clopidogrel in the setting of continued hematuria
For 2D echocardiogram/cardiology following
Monitor for ATN with continued hypotension monitor BMP
Renal bladder ultrasound pending
Assessment / Plan
Assessment / Plan
82-year-old with past medical history for CVA, GERD, hypotension, hyperlipidemia, [place], valvular disease presented to us with hematuria and clots. Patient underwent right laser ureteral stone surgery yesterday with stent placement. Patient stated
bloody urine associate with clots. Patient complained of incontinence of bloody urine and burning sensation patient also complained of lower abdominal pain. Denied fever but stated chills. Patient denied any headache, dizziness, syncopal episode.
Patient denied chest pain or short of breath. Patient denied nausea, vomiting, diarrhea.
Hemoglobin 10.3. Started on continuous bladder irrigation. Patient was evaluated by urologist. Admitting for further management
Patient hypotensive in ER. Patient received a normal saline and ceftriaxone in ER. Later describing chest pain in the ED described as pressure-like but no radiation and no aggravating influence from exertion or other measures.
Has remained hypotensive overnight with no return of any further chest pain
# Anemia likely from hematuria
-Hemoglobin stable at 10.3
-Trend hemoglobin
-Continue bladder irrigation
-Urology consulted
# Chronic kidney disease stage IIIb
-Creatinine 1.3>> 1.5
-Watch for ATN from continued hypotension
-Continue to monitor
# History of hypotension
-Blood pressure low in ER has remained overnight
-Received 1 dose of midodrine this morning by fur clipper
-Continue to monitor
#chest pain /atypical/
-obtain trop have been in determinate presumed nonischemic, EKG right bundle branch block/
-cardiology consulted
#chronic heart failure with preserved ejection fraction
-Patient is not in acute exacerbation
-Hold Lasix due to hypotension
-Hold metoprolol
-Echo 08/13/2022-normal LV size, EF 63%. Mild to moderate MR. Normally functioning bioprosthetic valve. Moderate to severe TR
-For repeat echo this morning
-Cardiology following
#Hypertension-
-hold metoprolol
-Blood pressure soft in ER
#Hyperlipidemia continue statin
#H/O retinal artery occlusion
#History of left carotid endarterectomy
#History of arctic valve replacement 2015
#History of stroke
-Hold Plavix and aspirin due to hematuria.
#Chronic back pain
-Diclofenac continued
#GERD
#Rheumatoid arthritis/osteoarthritis/osteoporosis/kyphosis/DJD
Continue Plaquenil
#History of lumpectomy for breast cancer
#DVT prophylaxis-subcutaneous SCD
# Full code
Anticipated Discharge: 24 - 48 hours
Subjective/Interval History
-
Date of Service: August 04, 2023
Feels that her sensation of chest pain may be in relation to her low blood pressure and anxiety over same. She has remained hypotensive overnight
Objective Data
-
Labs:
Laboratory Results
08/04/23
05:14
WBC 9.5
Hgb 9.9 L
Hct 30.6 L
Plt Count 204
Sodium 137
Potassium 4.3
Chloride 104
Carbon Dioxide 24
BUN 26 H
Creatinine 1.5 H
Glucose 119 H
Calcium 8.9
Vital Signs:
Vital Signs
Temp Pulse Resp BP Pulse Ox
98.5 F 68 14 87/53 94
08/04/23 03:30 08/04/23 06:02 08/04/23 06:02 08/04/23 06:02 08/04/23 06:02
I&O
08/02/23 08/03/23 08/04/23
06:59 06:59 06:59
Output Total 1400 / 1400
Balance -1400 / -1400
Review of Systems
-
History Source: Patient
Constitutional: Reports Fatigue
Cardiac: Denies Chest Pain
Genitourinary: Reports Bleeding and Dark Urine
Physical Exam
-
General: Well Developed
HEENT: Normocephalic
Respiratory: Clear to Auscultation
Cardiac: Regular Rhythm
GI: Soft, Nontender and Nondistended
Genito-urinary: Galvan and Continuous Bladder Irrigation (Tea color return)
Psych: Calm
Data Reviewed
-
Total Time Spent with Patient (in minutes): 45
Labs: Labs Reviewed by me (Hemoglobin remained stable at 9.9/creatinine is risen slightly and bumped up to 1.5/troponin 0.028)
--- NOTE | 2023-08-04 06:51 | W.PN.UPDATE ---
Update Note
Progress Note Update
BP 87/53 MAP 64, HR 65 Patient with hematuria, pink urine now on CBI, IV fluids maintained. Patient asymptomatic. HX of CHF. wll give Midodrine 5mg POx 1.
--- NOTE | 2023-08-04 07:45 | W.PN.URO.CBU ---
Addendum entered and electronically signed by Nathaniel Stout MD 08/04/23 12:24:
RBUS reviewed => 6 mm non-obs right renal stone, mild right hydro, no clot burden in right kidney, bladder w/ Galvan catheter balloon.
Continue CBI as hematuria improves - conservative management.
Original Note:
Today's Communication / Plan
-
Continue CBI today - wean to clear
Hold aspirin 81 mg
RBUS imaging reviewed w/o acute pathology - pending report
D/w Dr. Forte.
D/w RN.
Discussed plan of care with patient and son (Donald).
Assessment / Plan
-
Gross hematuria w/ clot retention
Active antiplatelet therapy
Hypotension
08/01: s/p right ureteroscopy + stent placement (uncomplicated, on ASA 81 mg through procedure)
Plavix held >7 days preoperatively with continuation of aspirin through surgery due to cardiovascular risk factors.
08/02: Right ureteral stent REMOVED at bedside w/o event (displaced distally).
08/02: 3-way 20Fr silastic catheter placed => dark wine-colored urine output, CBI initiated in ER
Diagnosis
-
Date of Service: August 04, 2023
-
Patient Diagnosis:
Gross hematuria w/ clots
Displaced right ureteral stent
Hypotension
Post Op Day:
08/01: s/p right ureteroscopy + stent placement (uncomplicated, on ASA 81 mg through procedure)
Subjective
-
Feels well.
Sitting in chair having breakfast.
Hypotensive w/ SBPs 80-90s on telemetry.
Urine light pink in tubing on low rate CBI.
Objective
-
Vital Signs
Temp Pulse Resp BP Pulse Ox
98.4 F 68 14 87/53 94
08/04/23 07:45 08/04/23 06:02 08/04/23 06:02 08/04/23 06:02 08/04/23 06:02
Intake and Output
08/03/23 08/04/23 08/05/23
06:59 06:59 06:59
Output Total 1400 / 1400
Balance -1400 / -1400
Output:
True Urine Output from CBI 1400 / 1400
Laboratory Results
08/04/23 05:14
08/04/23 05:14
Physical Exam
-
General - well developed, well nourished, no acute distress
Abdomen - soft, non-tender, non-distended
- 3-way catheter w/ light pink-tinged urine output on low rate CBI
Skin - warm & dry with no rash
Neuro - AOx3, no motor deficits
Extremities - no clubbing, no cyanosis, no edema
Care Review
Data Reviewed
Discussed with: Hospitalist, Nursing and Family
Ultrasound: Image Pers Reviewed
[2023-08-04 09:12] LABS: Glycohemoglobin (HgbA1c) 5.8 % (4.0-5.6)
[2023-08-04] MEDS: KCL 20 MEQ PO (09:16)
[2023-08-04] MEDS: PROTONIX 40 MG PO (09:16)
[2023-08-04] MEDS: PLAQUENIL 200 MG PO ×2 (09:17→19:53)
--- NOTE | 2023-08-04 10:09 | W.PN.CD ---
Today's Communication / Plan
-
-hold antihypertensive
-compression
-liberalize salt and fluid intake
-midodrine as needed for SBP <90 or MAP <65
-orhtostatics in am
Impression / Plan
-
Chest pressure
-Lasted about 5 minutes, chronic with evaluation as an ouptatient
-EKG nonischemic, no significant trop elevation
-She has been maintained on ASA
-TTE today
Anemia, in the setting of hematuria
-S/P ureteral stone surgery with stent placement yesterday, 08/02/2023
-CBI per Urology
-Clopidogrel has been on hold
HFpEF, chronic
-She received IV fluids
-Furosemide on hold, may need intravenous furosemide if she requires blood
-Follow daily weight, I/Os, and BMP
Hypotension:
-in the setting of blood loss
-weight loss at home
-hold antihypertensive
-compression
-liberalize salt and fluid intake
-midodrine as needed for SBP <90 or MAP <65
-orhtostatics in am
Severe aortic stenosis S/P #21 bovine bioprosthetic AVR (2016), peak/mean gradients 12/6 mmHg (07/2022)
Mild to moderate mitral regurgitation
Carotid artery stenosis S/p CEA (2021)
CVA 2/2 to CEA, DAPT on hold
RBBB, chronic
HTN, medications on hold in the setting of hypotension
HLD
CKD3b
Physical Exam
Vital Signs/Labs
Vital Signs
Temp Pulse Resp BP Pulse Ox
98.4 F 68 14 87/53 94
08/04/23 07:45 08/04/23 06:02 08/04/23 06:02 08/04/23 06:02 08/04/23 06:02
08/03/23 08/04/23 08/05/23
06:59 06:59 06:59
Actual Weight 70.2 kg
08/04/23 05:14
08/04/23 05:14
Triglycerides 81 mg/dl (10-149) 08/04/23 05:14
LDL Cholesterol, Calc 27 mg/dl 08/04/23 05:14
VLDL Cholesterol, Calc 16 mg/dl (0-30) 08/04/23 05:14
HDL Cholesterol 59 mg/dl 08/04/23 05:14
LAB Results
08/03/23 08/03/23 08/03/23
15:43 18:15 21:39
Troponin I 0.016 Cancelled 0.028 D
Physical Exam
Constitutional: No acute distress
Cardiovascular: Rhythm & rate is regular, Pedal edema is absent, JVD pressure is normal and Systolic murmur absent
Respiratory: Respiratory effort normal, Lungs clear to auscul., Wheeze Absent, Crackles Absent and Rhonchi Absent
Neuro/Psych: AO x 3
Data Reviewed
-
Date of Service: August 04, 2023
EKG: Tracing Personally Visualized and interpreted (sinus with pac rbbb) and Other (sinus)
[2023-08-04] MEDS: NSS 1000 IV (12:15)
--- NOTE | 2023-08-04 14:16 | PTCARENOTE ---
Dr Forte and Dr Owen aware of BP Midodrine given at 1212. Pt is asymptomatic
--- NOTE | 2023-08-04 16:48 | CM ---
Addendum entered by Pearl Suazo RN 08/04/23 17:01:
Patient shares that her Lorenzo is currently at [facility] for rehab.
Original Note:
Patient with Dx Anemia likely from hematuria, hypotension, chest pain/pressure, s/p right ureteroscopy + stent placement 08/01. Room air. Plan TTE today. IVF. CBI. PT Eval; likely no needs.
Met with patient and her son Donald;
the patient resides with her in a 2 story house with ramp at entrance and chair lift to 2nd floor.
The patient has been independent in ADLs and ambulation using her RW.
She is active however neither patient or drives. The patient takes DART and Uber as needed. Her 2 sons drive her when needed.
The patient states she feels wobbly when walking and she fell 2 weeks ago.
DME - RW
VN - prior [facility]
SNF - none
PCP - Naty Huynh
Pharmacy - [facility] [place]
The patient is hoping to go home and agrees to [facility].
Referral to [facility] Liaison.
Plan home with [facility].
[2023-08-04] MEDS: CRESTOR 10 MG PO (17:10)
[2023-08-04] MEDS: MELATONIN 3 MG PO (21:14)
--- NOTE | 2023-08-04 23:35 | PTCARENOTE ---
Addendum entered by Izzy Steven RN 08/05/23 06:20:
BP's continued to be low, night Crimper Assembler made aware 250 bolus ordered. Orthostatic vitals done this morning (see work list). Pt said she felt 'wiffy'
Addendum entered by Izzy Steven RN 08/05/23 01:41:
Pt's BP continuing to be low. Manual BP 82/42 HR in 60's, Night Crimper Assembler made garcia, one time order Midodrine given
Original Note:
Assumed care of Pt from Day RN. Pt CBI hanging with little urine out put. CBI gtt increased, Pt stating 'she feels it coming out' upon assessment large amount of fluid noted to be coming out around catheter. Galvan placement checked, balloon only
containing 10cc, Balloon reinflated with 35ml. Flush attempted again, fluid still coming out around Galvan. Manual flush attempted, sanjuana size clot along with a few jessica clots flushed into bag. CBI now irrigating well with out leaking, light red
punch color. Pt also requiring PRN midodrine for low BP's.
[2023-08-05] VITALS (42 sets, daily range): BP systolic 62–109; BP diastolic 31–88; PULSE 56–67; BMI 31.2
[2023-08-05] MEDS: ProAmatine 5 MG PO ×4 (00:37→22:07)
[2023-08-05] MEDS: NSS 250 IV (02:29)
[2023-08-05] MEDS: NSS 1000 IV (04:30)
[2023-08-05 05:43] LABS: Hematocrit 26.7 % (37.0-47.0); Hemoglobin 8.9 g/dL (12.0-16.0); Mean Corp Hgb Conc. 33.3 g/dL (33.0-37.0); Mean Corpuscular Hgb 28.7 pg (27.0-31.0); Mean Corpuscular Volume 86.1 fL (81.0-99.0); Mean Platelet Volume 10.1 fL (7.4-10.4); Platelet Count 173 10^3/uL (130-400); Red Cell Dist. Width 16.2 % (11.5-14.5); White Blood Cell Count 6.5 10^3/uL (4.8-10.8)
[2023-08-05 05:46] LABS: Blood Urea Nitrogen 26 mg/dl (7-17); Calcium 8.3 mg/dl (8.4-10.2); Carbon Dioxide 21 mmol/L (22-30); Chloride 108 mmol/L (98-107); Estimated Creatinine Clearance 33 ml/min; Glucose 84 mg/dl (70-99); Sodium 135 mmol/L (135-145); eGFR 45.76
--- NOTE | 2023-08-05 06:42 | PTCARENOTE ---
Pt Morning total for CBI -300, possibly from 2 saturated/ large amounts of fluid output from around Galvan in beginning of shift.
--- NOTE | 2023-08-05 06:58 | W.PN.HOSP.TC ---
Addendum entered and electronically signed by All Forte MD 08/05/23 13:33:
Hematuria enhanced by clopidogrel
Acute blood loss anemia with chronic anemia
Original Note:
Today's Communication/Plan
-
Continues with soft blood pressures continue to hold antihypertensives and diuresis
Continue to monitor H&H
Has lost about 3 g of hemoglobin since onset of hematuria otherwise hemodynamically stable
Assessment / Plan
Assessment / Plan
82-year-old with past medical history for CVA, GERD, hypotension, hyperlipidemia, [place], valvular disease presented to us with hematuria and clots. Patient underwent right laser ureteral stone surgery yesterday with stent placement. Patient stated
bloody urine associate with clots. Patient complained of incontinence of bloody urine and burning sensation patient also complained of lower abdominal pain. Denied fever but stated chills. Patient denied any headache, dizziness, syncopal episode.
Patient denied chest pain or short of breath. Patient denied nausea, vomiting, diarrhea.
Hemoglobin 10.3. Started on continuous bladder irrigation. Patient was evaluated by urologist. Admitting for further management
Patient hypotensive in ER. Patient received a normal saline and ceftriaxone in ER. Later describing chest pain in the ED described as pressure-like but no radiation and no aggravating influence from exertion or other measures.
Has remained hypotensive overnight with no return of any further chest pain
# Anemia likely from hematuria
-Hemoglobin stable at 12.4>> 10.3>> 8.9 this morning
-Trend hemoglobin
-Continue bladder irrigation
-Urology consulted
# Chronic kidney disease stage IIIb
-Creatinine 1.3>> 1.5
-Watch for ATN from continued hypotension
-Continue to monitor
-Renal ultrasound shows a 6 mm nonobstructing right renal stone and mild right hydronephrosis
# Hypotension
-Blood pressure low in ER has remained since admit
-Midodrine ordered 3 times daily as needed
-Continue to monitor
#chest pain /atypical/
-obtain trop have been in determinate presumed nonischemic, EKG right bundle branch block/
-cardiology consulted
#chronic heart failure with preserved ejection fraction
-Patient is not in acute exacerbation
-Hold Lasix due to hypotension
-Hold metoprolol
-Echo 08/13/2022-normal LV size, EF 63%. Mild to moderate MR. Normally functioning bioprosthetic valve. Moderate to severe TR
- repeat echo performed yesterday notes EF of 65% with moderate TR and mild to moderate MR unchanged from July 2022
-Cardiology following
#Hypertension-
-hold metoprolol
-Blood pressure soft in ER
#Hyperlipidemia continue statin
#H/O retinal artery occlusion
#History of left carotid endarterectomy
#History of arctic valve replacement 2015
#History of stroke
-Hold Plavix and aspirin due to hematuria.
#Chronic back pain
-Diclofenac continued
#GERD
#Rheumatoid arthritis/osteoarthritis/osteoporosis/kyphosis/DJD
Continue Plaquenil
#History of lumpectomy for breast cancer
#DVT prophylaxis-subcutaneous SCD
# Full code
Anticipated Discharge: Within 24 hours
Subjective/Interval History
-
Date of Service: August 05, 2023
Had some clots and blood passage around Galvan catheter and CBI and balloon was reinflated with good result thereafter now with only very dilute appearing tea colored return no abdominal discomfort remains hypotensive
Objective Data
-
Labs:
Laboratory Results
08/05/23 08/05/23
04:45 05:38
WBC Cancelled 6.5
Hgb Cancelled 8.9 L
Hct Cancelled 26.7 L
Plt Count Cancelled 173
Sodium 135
Potassium
Chloride 108 H
Carbon Dioxide 21 L
BUN 26 H
Creatinine 1.2 H
Glucose 84
Calcium 8.3 L
Vital Signs:
Vital Signs
Temp Pulse Resp BP Pulse Ox
97.8 F 67 17 98/54 96
08/05/23 03:50 08/05/23 05:51 08/05/23 05:51 08/05/23 05:51 08/05/23 05:51
I&O
08/03/23 08/04/23 08/05/23
06:59 06:59 06:59
Intake Total 1869
Output Total 1400 / 1400
Balance -1400 / -1400 1839
Review of Systems
-
History Source: Patient
Constitutional: Reports Fatigue
Respiratory: Reports No Symptoms
Cardiac: Reports No Symptoms
Genitourinary: Reports Bleeding (cbi)
Physical Exam
-
General: Well Developed
HEENT: Normocephalic
Respiratory: Clear to Auscultation
Cardiac: Regular Rhythm
Skin: Warm
Neuro: Awake, Alert, Oriented and AO x 3
Psych: Calm
Data Reviewed
-
Total Time Spent with Patient (in minutes): 45
Medical Tests (Nuc Med, Echo etc): Discussed with Nurse
Labs: Labs Reviewed by me and Discussed with Nurse
--- NOTE | 2023-08-05 08:00 | W.PN.URO.CBU ---
Addendum entered and electronically signed by Nathaniel Stout MD 08/05/23 11:57:
Abdominal pain w/ scant drainage noted - likely from clot obstruction/migration to catheter tip.
3-way catheter successfully exchanged by RN - draining on CBI.
Continue CBI - possible TOV in AM pending urine quality later today.
Original Note:
Today's Communication / Plan
-
Wean CBI as tolerated
Plan for TOV in AM (08/05)
Anemia/hypotension management per Cardiology/Hospitalist
D/w patient this AM.
Assessment / Plan
-
Gross hematuria w/ clot retention
Active antiplatelet therapy during surgery (aspirin)
Hypotension
08/01: s/p right ureteroscopy + stent placement (uncomplicated, on ASA 81 mg through procedure)
Plavix held >7 days preoperatively with continuation of aspirin through surgery due to cardiovascular risk factors.
08/02: Right ureteral stent REMOVED at bedside w/o event (displaced distally).
08/02: 3-way 20Fr silastic catheter placed => dark wine-colored urine output, CBI initiated in ER
08/03: RBUS => mild right hydro w/o clot burden, non-obs right renal stone, normal bladder w/ Galvan balloon
Hgb: 9.9 => 8.9
Cr: 1.5 => 1.2
Diagnosis
-
Date of Service: August 05, 2023
-
Patient Diagnosis:
Gross hematuria w/ clot retention
Displaced right ureteral stent
Hypotension
Post Op Day:
08/01: s/p right ureteroscopy + stent placement (uncomplicated, on ASA 81 mg through procedure)
Subjective
-
Feels well - sitting upright without dizziness
Tolerating diet.
Urine faintly pink-tinged on minimal CBI.
Objective
-
Vital Signs
Temp Pulse Resp BP Pulse Ox
98.1 F 75 17 83/68 96
08/05/23 07:19 08/05/23 08:32 08/05/23 05:51 08/05/23 08:32 08/05/23 05:51
Intake and Output
08/04/23 08/05/23 08/06/23
06:59 06:59 06:59
Intake Total 1870 / 1870
Output Total 1400 / 1400 30 / 30
Balance -1400 / -1400 1840 / 1840
Intake:
Oral fluids 240 / 240
IV fluids (Total) 1380 / 1380
IV piggybacks 250 / 250
Output:
True Urine Output from CBI 1400 / 1400 30 / 30
Other:
How many times incontinent 1
SATURATED amount urine
Laboratory Results
08/05/23 05:38
08/05/23 04:45
Physical Exam
-
General - well developed, well nourished, no acute distress
Abdomen - soft, non-tender, no CVAT
Genitalia - normal, 3-way catheter w/ faintly pink-tinged UOP on minimal CBI
Skin - warm & dry with no rash
Neuro - AOx3, no motor deficits
Extremities - no clubbing, no cyanosis, no edema
Care Review
Data Reviewed
Discussed with: Hospitalist and Family
Ultrasound: Report Pers Reviewed and Image Pers Reviewed
Total Time Spent with Patient (in minutes): 25
--- NOTE | 2023-08-05 08:01 | PN.CDI ---
CDI
- -
CDI:
Physician Documentation Request
Admit Date: 08/03/23 15:15
Dear Doctor Jann,
Please review the following and provide your response in the progress notes.
Clinical Indicators:
PN, 08/04
# Anemia likely from hematuria
#-Hemoglobin stable at 12.4>> 10.3>> 8.9 this morning
Laboratory Tests
08/03/23 08/04/23 08/05/23
10:24 05:14 05:38
Hgb 10.3 L 9.9 L 8.9 L
Please clarify which of the following is the most likely type of anemia evaluated, monitored and/or treated?
Acute blood loss anemia with baseline chronic anemia (Specify type)
Anemia of chronic disease - indicate if neoplastic disease, CKD or other
Other(please specify)
Use of terms such as suspected, likely, concern for, or probable (associated with a specific diagnosis that is being evaluated, monitored, or treated as if it exists) are acceptable and can be coded in the inpatient setting, when documented at the
time of discharge.
Thank you,
Sophie Beckett RN BSN CCDS
CDI Specialist
please contact via tiger text
Please use your independent medical judgment in providing your response.
--- NOTE | 2023-08-05 08:05 | PN.CDI ---
CDI
- -
CDI:
Physician Documentation Request
Admit Date: 08/03/23 15:15
Dear Doctor Jann,
Please review the following and provide your response in the progress notes.
Clinical Indicators:
PN, 08/04
#History of stroke
#-Hold Plavix and aspirin due to hematuria.
Please clarify the relationship, if any, between these conditions:
Yes, Hematuria is enhanced by/contributed to/associated with/due to Plavix and aspirin.
No, Hematuria is not enhanced by/contributed to/associated with/due to Plavix and aspirin but it is due to ___. (Please specify)
Other (please specify)
Use of terms such as suspected, likely, concern for, or probable (associated with a specific diagnosis that is being evaluated, monitored, or treated as if it exists) are acceptable and can be coded in the inpatient setting, when documented at the
time of discharge.
Thank you,
Sophie Beckett RN BSN CCDS
CDI Specialist
please contact via tiger text
Please use your independent medical judgment in providing your response.
[2023-08-05] MEDS: PROTONIX 40 MG PO (08:31)
[2023-08-05] MEDS: KCL 20 MEQ PO (08:32)
[2023-08-05] MEDS: PLAQUENIL 200 MG PO ×2 (08:32→21:12)
[2023-08-05] MEDS: SENOKOT-S 1 TABLET PO (09:59)
[2023-08-05] MEDS: MIRALAX 17 GRAMS PO (09:59)
[2023-08-05] MEDS: DILAUDID 0.25 MG IV (12:24)
[2023-08-05] MEDS: TYLENOL 650 MG PO (12:25)
--- NOTE | 2023-08-05 12:30 | PTCARENOTE ---
CBI clotted, despite many different attempts to clear clot was unsuccessful and morin catheter changed. New latex free 20fr 3way catheter inserted with no issues. CBI continued, pale pink output currently. Patient with relief after new catheter
placed. IV dilaudid given, tylenol given. BPs soft, giving midodrine PRN to maintain MAP >90. Patient currently comfortable, VSS. MD Stout and Jann notified. Continuing to closely monitor patient.
--- NOTE | 2023-08-05 14:35 | W.PN.CD ---
Addendum entered and electronically signed by Claude Felton MD 08/05/23 15:02:
I saw and examined the patient.
The CLERK CARRIER's note was reviewed and I agree with the note.
Patient currently comfortable without chest discomfort. Systolic blood pressures in the 90s. Overall condition stable compared to yesterday. No new recommendations. Continue to monitor for clinical signs of heart failure. Can continue to use
midodrine as needed.
Original Note:
Today's Communication / Plan
-
-monitor volume
-continue midodrine as needed
Impression / Plan
-
Chest pressure: resolved
-Lasted about 5 minutes, chronic with evaluation as an outpatient
-EKG nonischemic, no significant trop elevation
-She has been maintained on ASA
-echo 08/04/23: Normal left ventricular size, wall thickness and systolic function. LV ejection fraction is 60-65%. Mild to moderate mitral regurgitation. Normally functioning bioprosthetic valve. Moderate tricuspid regurgitation. Estimated
pulmonary artery pressure of 43 mmHg.
Anemia, in the setting of hematuria:
-S/P ureteral stone surgery with stent placement 08/02/2023
-CBI per Urology
-Clopidogrel has been on hold
HFpEF, chronic
-She received IV fluids
-Furosemide on hold, may need intravenous furosemide if she requires blood
-Follow daily weight, I/Os, and BMP
-does not appear volume overloaded to assessment today
Hypotension:
-in the setting of blood loss
-weight loss at home
-hold antihypertensive
-compression
-liberalize salt and fluid intake
-midodrine as needed for SBP <90 or MAP <65
-orthostatics this AM negative
Severe aortic stenosis S/P #21 bovine bioprosthetic AVR (2016), peak/mean gradients 12/6 mmHg (07/2022)
Mild to moderate mitral regurgitation
Carotid artery stenosis S/p CEA (2021)
CVA 2/2 to CEA, DAPT on hold
RBBB, chronic
HTN, medications on hold in the setting of hypotension
HLD
CKD3b
Physical Exam
Vital Signs/Labs
Vital Signs
Temp Pulse Resp BP Pulse Ox
98.0 F 69 15 95/48 98
08/05/23 11:15 08/05/23 09:17 08/05/23 09:17 08/05/23 09:17 08/05/23 09:17
08/04/23 08/05/23 08/06/23
06:59 06:59 06:59
Actual Weight 70.2 kg 72.4 kg
08/05/23 05:38
08/05/23 04:45
Triglycerides 81 mg/dl (10-149) 08/04/23 05:14
LDL Cholesterol, Calc 27 mg/dl 08/04/23 05:14
VLDL Cholesterol, Calc 16 mg/dl (0-30) 08/04/23 05:14
HDL Cholesterol 59 mg/dl 08/04/23 05:14
LAB Results
08/03/23 08/03/23 08/03/23
15:43 18:15 21:39
Troponin I 0.016 Cancelled 0.028 D
Physical Exam
Constitutional: No acute distress
EENT: Anicteric
Cardiovascular: Rhythm & rate is regular
Respiratory: Respiratory effort normal and Lungs clear to auscul.
Neuro/Psych: AO x 3
Other: Skin (warm and dry)
Data Reviewed
-
Date of Service: August 05, 2023
EKG: Other (tele SR)
Labs: Labs Reviewed by me
[2023-08-05] MEDS: DICLOFENAC 1% TOPICAL GEL 2 GRAM TOPICAL (17:25)
[2023-08-05] MEDS: CRESTOR 20 MG PO (17:25)
[2023-08-05] MEDS: MELATONIN 3 MG PO (22:02)
[2023-08-05] MEDS: TYLENOL 325 MG PO (22:07)
--- NOTE | 2023-08-05 23:55 | PTCARENOTE ---
Pt CBI continued, yellow clear urine, no clots noted. Pt having a 8 run of PVC's, night [employer] made aware Mag ordered for morning. Pt BP continuing to be soft MAP's close close to 65. Assessment care and vitas as charted.
[2023-08-06] VITALS (20 sets, daily range): BP systolic 89–147; BP diastolic 44–83; PULSE 66–82; BMI 31.6
[2023-08-06 04:31] LABS: Hematocrit 27.1 % (37.0-47.0); Hemoglobin 9.1 g/dL (12.0-16.0); Mean Corp Hgb Conc. 33.6 g/dL (33.0-37.0); Mean Corpuscular Hgb 28.5 pg (27.0-31.0); Mean Platelet Volume 10.6 fL (7.4-10.4); Platelet Count 174 10^3/uL (130-400); Red Blood Cell Count 3.19 10^6/uL (4.20-5.40); Red Cell Dist. Width 16.2 % (11.5-14.5); White Blood Cell Count 6.3 10^3/uL (4.8-10.8)
[2023-08-06 05:24] LABS: Blood Urea Nitrogen 27 mg/dl (7-17); Calcium 8.9 mg/dl (8.4-10.2); Carbon Dioxide 25 mmol/L (22-30); Chloride 109 mmol/L (98-107); Estimated Creatinine Clearance 33 ml/min; Glucose 90 mg/dl (70-99); Magnesium 1.9 mg/dl (1.6-2.3); Potassium 5.2 mmol/L (3.5-5.1); Sodium 135 mmol/L (135-145); eGFR 45.76
--- NOTE | 2023-08-06 06:55 | W.PN.HOSP.TC ---
Today's Communication/Plan
-
For hopeful trial of void today after discontinuation of CBI as per urology
Try and increase activity
I tried to reassure her that her continued low blood pressure values are probably not related to her valves as reviewed results of her most recent echocardiogram
Continue to hold off on her antihypertensives
Continue midodrine
Watch for hyperkalemia
Assessment / Plan
Assessment / Plan
82-year-old with past medical history for CVA, GERD, hypotension, hyperlipidemia, [place], valvular disease presented to us with hematuria and clots. Patient underwent right laser ureteral stone surgery yesterday with stent placement. Patient stated
bloody urine associate with clots. Patient complained of incontinence of bloody urine and burning sensation patient also complained of lower abdominal pain. Denied fever but stated chills. Patient denied any headache, dizziness, syncopal episode.
Patient denied chest pain or short of breath. Patient denied nausea, vomiting, diarrhea.
Hemoglobin 10.3. Started on continuous bladder irrigation. Patient was evaluated by urologist. Admitting for further management
Patient hypotensive in ER. Patient received a normal saline and ceftriaxone in ER. Later describing chest pain in the ED described as pressure-like but no radiation and no aggravating influence from exertion or other measures.
Has remained hypotensive overnight with no return of any further chest pain
# Anemia likely from hematuria
-Hemoglobin stable at 12.4>> 10.3>> 8.9 this morning
-Trend hemoglobin
-Continue bladder irrigation
-Urology consulted
# Chronic kidney disease stage IIIb
-Creatinine 1.3>> 1.5>> 1.2
-Watch for ATN from continued hypotension
-Continue to monitor
-Renal ultrasound shows a 6 mm nonobstructing right renal stone and mild right hydronephrosis
# Hypotension
-Blood pressure low in ER has remained since admit
-Midodrine ordered 3 times daily as needed
-Continue to monitor
#chest pain /atypical/
-obtain trop have been in determinate presumed nonischemic, EKG right bundle branch block/
-cardiology consulted
#chronic heart failure with preserved ejection fraction
-Patient is not in acute exacerbation
-Hold Lasix due to hypotension
-Hold metoprolol
-Echo 08/13/2022-normal LV size, EF 63%. Mild to moderate MR. Normally functioning bioprosthetic valve. Moderate to severe TR
- repeat echo performed yesterday notes EF of 65% with moderate TR and mild to moderate MR unchanged from July 2022
-She is concerned that her valves may be contributory low blood pressure assured her that is not the case as they remain unchanged
-Cardiology following
#Hypertension-
-hold metoprolol
-Blood pressure soft in ER
#Hyperlipidemia continue statin
#H/O retinal artery occlusion
#History of left carotid endarterectomy
#History of arctic valve replacement 2015
#History of stroke
-Hold Plavix and aspirin due to hematuria.
#Chronic back pain
-Diclofenac continued
#GERD
#Rheumatoid arthritis/osteoarthritis/osteoporosis/kyphosis/DJD
Continue Plaquenil
#History of lumpectomy for breast cancer
#DVT prophylaxis-subcutaneous SCD
# Full code
Anticipated Discharge: Within 24 hours
Subjective/Interval History
-
Date of Service: August 06, 2023
She is concerned over her continued low blood pressure now in the absence of her blood pressure medications and wants to ask cardiology if her valve is at all involved. She is otherwise asymptomatic denies any dizziness chest pain shortness of
breath CBI seems to have cleared but did require a three-way catheter exchanged by urology yesterday after development of some abdominal pain presumed from clot obstruction and migration to catheter tip
Objective Data
-
Labs:
Laboratory Results
08/06/23
04:14
WBC 6.3
Hgb 9.1 L
Hct 27.1 L
Plt Count 174
Sodium 135
Potassium 5.2 H
Chloride 109 H
Carbon Dioxide 25
BUN 27 H
Creatinine 1.2 H
Glucose 90
Calcium 8.9
Vital Signs:
Vital Signs
Temp Pulse Resp BP Pulse Ox
98.0 F 59 21 94/53 96
08/06/23 03:52 08/06/23 06:15 08/06/23 06:15 08/06/23 06:15 08/06/23 06:15
I&O
08/04/23 08/05/23 08/06/23
06:59 06:59 06:59
Intake Total 1870 / 1870 340 / 340
Output Total 1400 / 1400 30 / 30 2350 / 2350
Balance -1400 / -1400 1840 / 1840 -2009 /
Review of Systems
-
History Source: Patient
Genitourinary: Reports Dysuria
Physical Exam
-
General: Well Developed and Well Nourished
Respiratory: Clear to Auscultation
Cardiac: Regular Rhythm, S1/S2 and Murmur
Genito-urinary: Galvan and Continuous Bladder Irrigation (Cleared)
Psych: Calm
Data Reviewed
-
Total Time Spent with Patient (in minutes): 45
Labs: Labs Reviewed by me (Hemoglobin continues to trend up now up to 9.1)
--- NOTE | 2023-08-06 07:50 | W.PN.URO.CBU ---
Today's Communication / Plan
-
D/c Galvan catheter this AM
TOV today
RBUS reviewed w/ patient
Hypotension management per Cardiology/Hospitalist
F/U as outpatient in 2 mo
D/w patient.
D/w RN.
D/w Dr. Forte.
Assessment / Plan
-
Gross hematuria w/ clot retention
Active antiplatelet therapy during surgery (aspirin)
Hypotension
08/01: s/p right ureteroscopy + stent placement (uncomplicated, on ASA 81 mg through procedure)
Plavix held >7 days preoperatively with continuation of aspirin through surgery due to cardiovascular risk factors.
08/02: Right ureteral stent REMOVED at bedside w/o event (displaced distally).
08/02: 3-way 20Fr silastic catheter placed => dark wine-colored urine output, CBI initiated in ER
08/03: RBUS => mild right hydro w/o clot burden, non-obs right renal stone, normal bladder w/ Galvan balloon
Hgb: 9.9 => 8.9 => 9.1
Cr: 1.5 => 1.2 => 1.2
SBPs still remain <100
Diagnosis
-
Date of Service: August 06, 2023
-
Patient Diagnosis:
Gross hematuria w/ clot retention
Displaced right ureteral stent
Hypotension
Post Op Day:
08/01: s/p right ureteroscopy + stent placement (uncomplicated, on ASA 81 mg through procedure)
Subjective
-
Urine clear in tubing w/ CBI clamped.
Tolerating diet.
SBPs in 90s.
Objective
-
Vital Signs
Temp Pulse Resp BP Pulse Ox
98.0 F 59 21 94/53 96
08/06/23 03:52 08/06/23 06:15 08/06/23 06:15 08/06/23 06:15 08/06/23 06:15
Intake and Output
08/05/23 08/06/23 08/07/23
06:59 06:59 06:59
Intake Total 1870 / 1870 340 / 340
Output Total 2349 / 235
Balance 1840 / 0 -2009
Intake:
Oral fluids 240 / 240 340 / 340
IV fluids (Total) 1380 / 1380 0 / 0
IV piggybacks 250 / 250
Output:
True Urine Output from CBI 2349 / 235
Other:
How many times incontinent 1
SATURATED amount urine
Laboratory Results
08/06/23 04:14
08/06/23 04:14
Physical Exam
-
General - well developed, well nourished, no acute distress
Abdomen - soft, non-tender, non-distended
Genitalia - normal, 3-way catheter w/ clear UOP (CBI clamped)
Skin - warm & dry with no rash
Neuro - AOx3, no motor deficits
Extremities - no clubbing, no cyanosis, no edema
Care Review
Data Reviewed
Discussed with: Hospitalist, Nursing and Family
Ultrasound: Report Pers Reviewed and Image Pers Reviewed
Total Time Spent with Patient (in minutes): 25
--- NOTE | 2023-08-06 08:26 | W.PN.CD ---
Today's Communication / Plan
-
would not resume bb or furosemide on dc/
would d/c with prm midodrine
compression
will arrange close follow up next week in our office
I will sign off
Impression / Plan
-
Chest pressure: resolved
-Lasted about 5 minutes, chronic with evaluation as an outpatient
-EKG nonischemic, no significant trop elevation
-She has been maintained on ASA
-echo 08/04/23: Normal left ventricular size, wall thickness and systolic function. LV ejection fraction is 60-65%. Mild to moderate mitral regurgitation. Normally functioning bioprosthetic valve. Moderate tricuspid regurgitation. Estimated
pulmonary artery pressure of 43 mmHg.
Anemia, in the setting of hematuria:
-S/P ureteral stone surgery with stent placement 08/02/2023
-CBI per Urology
-Clopidogrel has been on hold, will not resume, will add back aspirin 81mg daily
HFpEF, chronic
-She has lost weight in own efforts though lifestyle changes
-monitor as an op
-will not resume asa
Hypotension:
-in the setting of blood loss ,weight loss at home
-hold antihypertensive
-compression
-liberalize salt and fluid intake
-midodrine as needed for SBP <90 or MAP <65---can go home on this plan, explained how to do this
-will arrange close follow up to reassess as an op
Severe aortic stenosis S/P #21 bovine bioprosthetic AVR (2016), peak/mean gradients 12/6 mmHg (07/2022)
Mild to moderate mitral regurgitation
Carotid artery stenosis S/p CEA (2021)
CVA 2/2 to CEA, DAPT on hold
RBBB, chronic
HTN, medications on hold in the setting of hypotension
HLD
CKD3b
Subjective:
no cp, sob, so lh with change in postition but very mild
Physical Exam
Vital Signs/Labs
Vital Signs
Temp Pulse Resp BP Pulse Ox
98.0 F 59 21 94/53 96
08/06/23 03:52 08/06/23 06:15 08/06/23 06:15 08/06/23 06:15 08/06/23 06:15
08/05/23 08/06/23 08/07/23
06:59 06:59 06:59
Actual Weight 72.4 kg 73.4 kg
08/06/23 04:14
08/06/23 04:14
Magnesium 1.9 mg/dl (1.6-2.3) 08/06/23 04:14
Triglycerides 81 mg/dl (10-149) 08/04/23 05:14
LDL Cholesterol, Calc 27 mg/dl 08/04/23 05:14
VLDL Cholesterol, Calc 16 mg/dl (0-30) 08/04/23 05:14
HDL Cholesterol 59 mg/dl 08/04/23 05:14
LAB Results
08/03/23 08/03/23 08/03/23
15:43 18:15 21:39
Troponin I 0.016 Cancelled 0.028 D
Physical Exam
Constitutional: No acute distress
Cardiovascular: Rhythm & rate is regular, Pedal edema is absent, JVD pressure is normal and Systolic murmur present
Respiratory: Respiratory effort normal, Lungs clear to auscul., Wheeze Absent, Crackles Absent and Rhonchi Absent
Neuro/Psych: AO x 3
Data Reviewed
-
Date of Service: August 06, 2023
EKG: Other (tele sinus)
Medical Tests (PFT, Pathology etc): Discussed with Physician (Dr Ornelas I will resume asa and would send home on prn midodrine)
[2023-08-06] MEDS: PLAQUENIL 200 MG PO ×2 (09:25→19:58)
[2023-08-06] MEDS: MIRALAX 17 GRAMS PO (09:25)
[2023-08-06] MEDS: SENOKOT-S 1 TABLET PO (09:25)
[2023-08-06] MEDS: KCL 20 MEQ PO (09:25)
[2023-08-06] MEDS: PROTONIX 40 MG PO (09:25)
--- NOTE | 2023-08-06 10:50 | PTCARENOTE ---
Galvan removed at 10 am per Urology orders, pt did void on bedside commode at 10:45 for 250 mls of brick colored urine, several small clots noted. Dr. Stout updated via TT. Orthos neg for tilt this am, however pt did c/o mild dizziness while walking
in robert with PT, followup BP 91/77. pt's family at bedside, updated by this RN and by CM at bedside. Urology update passed on via TT message. Continuing to monitor.
--- NOTE | 2023-08-06 11:28 | VNURNOTE ---
Home Health Liaison met with patient at 1045 to discuss [facility] nurse/therapy, visits, schedule and homebound status. Patient is agreeable and understands that visits at home will be 2-3 x per week to assess and teach medical management.
Family entered room at end of discussion as patient was working with PT.
Liaison discussed above with 2 sons and daughter and all are in agreement with [facility] but are concerned because she always says she is okay, even if not. Private caregivers discussed but patient has been resistant in past.
[facility] brochure provided with contact information. Patient is aware that [facility] will contact her for start of care in 1-2 days after discharge from .
[facility] referral completed in Care Port.
[2023-08-06] MEDS: CRESTOR 10 MG PO (17:28)
--- NOTE | 2023-08-06 17:29 | CM ---
Patient with Dx Anemia likely from hematuria, hypotension, chest pain/pressure, s/p right ureteroscopy + stent placement 08/01. Galvan d/c- TOV.
PT 08/05; rec home PT vs SNF, Pt is more unsteady today and was dizzy with ambulation.
OT 08/05 rec skilled rehab.
Met with patient and attempted to discuss rehab vs home with caregiver assistance. Patient immediately became upset when she heard the word rehab and was very reactive, asking why that was recommended however not willing to listen to explanations-
kept interrupting and remained upset. Patient finally became calmer and able to discuss. Patient's is still at [facility]. She is unwilling to ask her sons to stay with her or consider going to stay with him. Discussed hiring
caregiver and provided Caregiver list. Patient not agreeable to contacting her children to include them in d/c plans. She is agreeable to going home with [facility] - reminded her of short visits. Patient declined to sign [facility] today.
Case discussed with [employer] Liaison.
Plan home with [facility], with Caregiver List.
--- NOTE | 2023-08-06 17:46 | CM ---
Patient with Dx Anemia likely from hematuria, hypotension, chest pain/pressure, s/p right ureteroscopy + stent placement 08/01. Galvan d/c- TOV.
PT 08/05; rec home PT vs SNF, Pt is more unsteady today and was dizzy with ambulation.
OT 08/05 rec skilled rehab.
Met with patient and attempted to discuss rehab vs home with caregiver assistance. Patient immediately became upset when she heard the word rehab and was very reactive, asking why that was recommended however not willing to listen to explanations-
kept interrupting and remained upset. CM provided rationale for SNF for rehab or home with caregiver as a safe d/c plan to prevent falls at home. Patient finally became calmer and able to discuss. Patient's is still at [facility].
She is unwilling to ask her sons to stay with her or consider going to stay with him. Discussed hiring caregiver and provided Caregiver list. Patient not agreeable to CM contacting her children to include them in d/c plans. She is agreeable
to going [facility] with [facility] - reminded her of short visits. Patient declined to sign [facility] today.
Case discussed with [facility] Liaison.
Plan home with [facility], with Caregiver List.
[2023-08-06] MEDS: MELATONIN 3 MG PO (22:01)
[2023-08-06] MEDS: ProAmatine 5 MG PO (22:37)
--- NOTE | 2023-08-06 23:23 | PTCARENOTE ---
Addendum entered by Izzy Steven RN 08/07/23 03:46:
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 Stat midodrine given and effective.
Original Note:
Pt Bp lower at night, PRN midodrine given for sbp lower then 90 and map below 65(see mar). Pt asymptomatic, responding appropriately. Pt has no complaints at this time.
[2023-08-07] VITALS (12 sets, daily range): BP systolic 85–131; BP diastolic 41–86; BMI 30.2
[2023-08-07] MEDS: ProAmatine 5 MG PO (00:58)
[2023-08-07 04:33] LABS: Hematocrit 32.8 % (37.0-47.0); Hemoglobin 10.7 g/dL (12.0-16.0); Mean Corp Hgb Conc. 32.6 g/dL (33.0-37.0); Mean Corpuscular Hgb 28.8 pg (27.0-31.0); Mean Corpuscular Volume 88.2 fL (81.0-99.0); Mean Platelet Volume 10.7 fL (7.4-10.4); Platelet Count 185 10^3/uL (130-400); Red Blood Cell Count 3.72 10^6/uL (4.20-5.40); White Blood Cell Count 5.5 10^3/uL (4.8-10.8)
[2023-08-07 05:04] LABS: Blood Urea Nitrogen 26 mg/dl (7-17); Calcium 9.9 mg/dl (8.4-10.2); Carbon Dioxide 27 mmol/L (22-30); Chloride 106 mmol/L (98-107); Estimated Creatinine Clearance 36 ml/min; Glucose 87 mg/dl (70-99); Sodium 137 mmol/L (135-145)
--- NOTE | 2023-08-07 07:22 | W.DS.TRANS ---
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
-
Discharge Instructions:
Discharge Diagnosis/Procedures Status post ureteroscopic and stent placement
August 01 removed stent August 02 after onset of
hematuria
Acute blood loss anemia
Hypotension
Heart failure with preserved ejection fraction
Instructions:
Stand-Alone Forms:
Changes to Home Medications: No
Discharge Medications:
DC Medications w/original date entered in [facility]
hydroxychloroquine 200 mg tablet 200 mg PO BID rheumatoid arthritis 07/17/21
rosuvastatin 10 mg tablet 10 mg PO Q48H@1800 High cholesterol 07/17/21
aspirin 81 mg tablet,delayed release 81 mg PO .SEE BELOW Blood clot prevention/tx 07/29/23
rosuvastatin 20 mg tablet 20 mg PO Q48H@1800 High Cholesterol 07/29/23
acetaminophen 325 mg tablet 325 mg PO HSPRN PRN mild pain 08/03/23
dapagliflozin propanediol 10 mg tablet (Farxiga) 10 mg PO .SEE BELOW Diabetes 08/03/23
diclofenac sodium 1 % topical gel 2 g topical TIDPRN PRN apply to back of neck 08/03/23
metronidazole 1 % topical gel 1 applic topical DAILY PRN apply to back of neck 08/03/23
midodrine 5 mg tablet 5 mg PO TIDPRN PRN SBP<90 MAP<65 #20 tabs 08/07/23
polyethylene glycol 3350 17 gram oral powder packet (HealthyLax) 17 g PO DAILYPRN PRN constipation #30 ea 08/07/23
sennosides 8.6 mg-docusate sodium 50 mg tablet (Stool Softener-Stimulant Laxative) 1 tab PO BIDPRN PRN constipation #20 tabs 08/07/23
Home Medication Changes
midodrine 5 mg tablet 5 mg PO TIDPRN PRN SBP<90 MAP<65 #20 tabs 08/07/23
polyethylene glycol 3350 17 gram oral powder packet (HealthyLax) 17 g PO DAILYPRN PRN constipation #30 ea 08/07/23
sennosides 8.6 mg-docusate sodium 50 mg tablet (Stool Softener-Stimulant Laxative) 1 tab PO BIDPRN PRN constipation #20 tabs 08/07/23
Pending Results: No
--- NOTE | 2023-08-07 08:53 | W.PN.UPDATE ---
Update Note
Progress Note Update
pt stable
urinating- no hematuria
cleared for discharge urologically per previous instructions
discussed with med team
[2023-08-07] MEDS: LOW STRENGTH ASPIRIN 81 MG PO (09:19)
[2023-08-07] MEDS: PLAQUENIL 200 MG PO (09:19)
[2023-08-07] MEDS: KCL 20 MEQ PO (09:19)
[2023-08-07] MEDS: PROTONIX 40 MG PO (09:19)
--- NOTE | 2023-08-07 10:23 | PTCARENOTE ---
Pt rec'd this am at 7:15 from previous RN, assisted x1 with RW to ambulate into bathroom to perform hygeine care, no c/o dizziness per PCT. Meds and assessment as documented, BPs soft but MAP >65, pt asymptomatic, Pt worked with PT to ambulated in
hallway twice, slow gait noted... lengthy discussion with therapist and patient re: discharge planning. Per PT rec -ideally patient would agree to go to rehab to get stronger prior to home alone, pt now agreeable to considering, planning to call
sons and discuss. She stated she would consider the rehab near her son's house or [facility] which is where her is currently admitted for rehab. Dr. Forte updated via TT and in agreement if that is what patient wants to do. Will
continue to monitor.
--- NOTE | 2023-08-07 10:46 | W.PN.HOSP.TC ---
Today's Communication/Plan
-
Again has changed her mind and now will not want to go home and PT raising concerns for safety so I will try and arrange for rehab
Assessment / Plan
Assessment / Plan
82-year-old with past medical history for CVA, GERD, hypotension, hyperlipidemia, [place], valvular disease presented to us with hematuria and clots. Patient underwent right laser ureteral stone surgery yesterday with stent placement. Patient stated
bloody urine associate with clots. Patient complained of incontinence of bloody urine and burning sensation patient also complained of lower abdominal pain. Denied fever but stated chills. Patient denied any headache, dizziness, syncopal episode.
Patient denied chest pain or short of breath. Patient denied nausea, vomiting, diarrhea.
Hemoglobin 10.3. Started on continuous bladder irrigation. Patient was evaluated by urologist. Admitting for further management
Patient hypotensive in ER. Patient received a normal saline and ceftriaxone in ER. Later describing chest pain in the ED described as pressure-like but no radiation and no aggravating influence from exertion or other measures.
Has remained hypotensive overnight with no return of any further chest pain
# Anemia likely from hematuria
-Hemoglobin stable at 12.4>> 10.3>> 8.9 this morning
-Trend hemoglobin
-Continue bladder irrigation
-Urology consulted
# Chronic kidney disease stage IIIb
-Creatinine 1.3>> 1.5>> 1.2
-Watch for ATN from continued hypotension
-Continue to monitor
-Renal ultrasound shows a 6 mm nonobstructing right renal stone and mild right hydronephrosis
# Hypotension
-Blood pressure low in ER has remained since admit
-Midodrine ordered 3 times daily as needed
-Continue to monitor
#chest pain /atypical/
-obtain trop have been in determinate presumed nonischemic, EKG right bundle branch block/
-cardiology consulted
#chronic heart failure with preserved ejection fraction
-Patient is not in acute exacerbation
-Hold Lasix due to hypotension
-Hold metoprolol
-Echo 08/13/2022-normal LV size, EF 63%. Mild to moderate MR. Normally functioning bioprosthetic valve. Moderate to severe TR
- repeat echo performed yesterday notes EF of 65% with moderate TR and mild to moderate MR unchanged from July 2022
-She is concerned that her valves may be contributory low blood pressure assured her that is not the case as they remain unchanged
-Cardiology following
#Hypertension-
-hold metoprolol and will be held at discharge
-Blood pressure soft in ER
#Hyperlipidemia continue statin
#H/O retinal artery occlusion
#History of left carotid endarterectomy
#History of arctic valve replacement 2015
#History of stroke
-Hold Plavix and aspirin due to hematuria
-No further Plavix even at discharge and continue aspirin starting on Wednesday, August 08 per cardiology.
#Chronic back pain
-Diclofenac continued
#GERD
#Rheumatoid arthritis/osteoarthritis/osteoporosis/kyphosis/DJD
Continue Plaquenil
#History of lumpectomy for breast cancer
#DVT prophylaxis-subcutaneous SCD
# Full code
Anticipated Discharge: 24 - 48 hours
Subjective/Interval History
-
Date of Service: August 07, 2023
After discharge plan discussed with the patient she is again hesitant to pursue and now wants to go to rehab
Objective Data
-
Labs:
Laboratory Results
08/07/23
04:22
WBC 5.5
Hgb 10.7 L
Hct 32.8 L
Plt Count 185
Sodium 137
Potassium 5.0
Chloride 106
Carbon Dioxide 27
BUN 26 H
Creatinine 1.1 H
Glucose 87
Calcium 9.9
Vital Signs:
Vital Signs
Temp Pulse Resp BP Pulse Ox
97.5 F 58 12 101/51 95
08/07/23 07:35 08/07/23 06:04 08/07/23 06:04 08/07/23 06:04 08/07/23 03:35
I&O
08/06/23 08/07/23 08/08/23
06:59 06:59 06:59
Intake Total 340 / 340 880 / 880
Output Total 2350 / 2350 2600 / 2600
Balance -2009 / -2009 -1720 / -1720
--- NOTE | 2023-08-07 11:25 | CM ---
Addendum entered by Angela Pate RN 08/07/23 12:16:
Son Lorenzo will drive her to [facility] at 2 Pm.
Pt agreed with [facility] Pt has a copy of [facility].
Original Note:
PT evals suggest SNF.
Pt consented to [facility] where her is also.
Referral placed in care port.
Spoke with Maria A cruz at [facility] She accepted her at [facility] today.
[facility]
report [phone]
fax [phone]
PLAN to [facility] today
.
--- NOTE | 2023-08-07 11:52 | PTCARENOTE ---
Pt now is accepted at [facility], son Lorenzo will be here to transport her around 2 Pm. Will call report to nursing facility per CM documentation.
--- NOTE | 2023-08-07 13:04 | W.DCSUMMARY ---
Discharge Summary
Discharge Data
Date of Admission: 08/03/23
Date of Discharge: 08/07/23
-
Pending Results: No
Hospital Course
82-year-old with past medical history for CVA, GERD, hypotension, hyperlipidemia, [place], valvular disease presented to us with hematuria and clots. Patient underwent right laser ureteral stone surgery yesterday with stent placement. Patient stated
bloody urine associate with clots. Patient complained of incontinence of bloody urine and burning sensation patient also complained of lower abdominal pain. Denied fever but stated chills. Patient denied any headache, dizziness, syncopal episode.
Patient denied chest pain or short of breath. Patient denied nausea, vomiting, diarrhea.
Hemoglobin 10.3. Started on continuous bladder irrigation. Patient was evaluated by urologist. Subsequently removed the involved stent with continued evidence of gross hematuria and placed on continuous bladder irrigation with an indwelling Galvan
catheterization she can continue to show hypotension in spite of fluid resuscitation in the ED and thusly after developing some atypical substernal chest discomfort decision was made to admit to the intermediate care unit.
She was seen in follow-up in relation to above not only by the urology service but also the cardiology service. We withheld her prior clopidogrel dosing and antihypertensives in the setting of her continued hypotension her H&H status and
hemodynamics remained borderline however never necessitating blood transfusion and actually started to slowly increase during hospitalization levels of hemoglobin however with continued soft blood pressures difficult to explain as the patient was
not tachycardic even in the absence of her beta-blockade. Chest pressure after admission resolved EKG was nonischemic with no significant troponin elevation. A subsequent 2D echocardiogram was ordered showing normal normal left ventricular size
wall thickness and systolic function with an EF of 65% mild to moderate mitral regurg as prior without change from prior also moderate tricuspid regurg with stability of estimated pulmonary artery pressures of 43 mm as before.
With further follow-up with the urology service and resolution over hematuria CBI was discontinued and Galvan catheter was removed and passing a void trial of 05 August. He is considered medically stable for discharge but continued concerns with
physical therapy and instability prompted agreement that the patient's should pursue a rehab course in the short-term and arrangements were made for discharge to [facility] where her is undergoing rehab also on 06 August.
He has remained weak and with some levels of dizziness on ambulation and because of continued soft blood pressures it was agreed that the patient's beta-blockade and and furosemide should be held at time of discharge cardiology felt there was no
further need for close ventricular going forward and they will be discontinued permanently at this point they have agreed that the patient's aspirin therapy should be resumed on August 08. She has been instructed to use midodrine as needed
for soft blood pressures when they occur she is to continue using compression stockings and liberalization of salt and fluid intake is that now warranted.
Discharge diagnoses will be anemia of blood loss in relation to hematuria status post ureteroscopic stone removal and stent placement now removed
Chronic preserved EF heart failure
Hypotension
Severe aortic stenosis status post bovine bioprosthetic aortic valve mild to moderate mitral and tricuspid regurg chronic kidney disease stage IIIb
Discharge Plan
-
Patient Disposition: Senior Living/SNF
Discharge Diagnosis/Procedures: Status post ureteroscopic and stent placement August 01 removed stent 6 August 02 after onset of hematuria
Acute blood loss anemia
Hypotension
Heart failure with preserved ejection fraction
Referrals:
Sun Magana CRNP [Specified Professional Personl] - 08/12/23 10:00 am
Pola Aceves MD [Family Provider] -
Additional Discharge Medication Instructions: Do not resume Plavix
Prescriptions:
New
polyethylene glycol 3350 [HealthyLax] 17 gram Powder In Packet
17 g PO DAILYPRN PRN (Reason: constipation) Qty: 30 0RF
sennosides-docusate sodium [Stool Softener-Stimulant Laxat] 8.6-50 mg Tablet
1 tab PO BIDPRN PRN (Reason: constipation) Qty: 20 0RF
midodrine 5 mg tablet
5 mg PO PRN PRN (Reason: low BP) Qty: 20 0RF
Continued
hydroxychloroquine 200 MG tablet
200 mg PO BID
rosuvastatin 10 MG tablet
10 mg PO Q48H@1800
rosuvastatin 20 mg Tablet
20 mg PO Q48H@1800
metronidazole 1 % Gel
1 applic TOPICAL DAILY PRN (Reason: apply to back of neck)
diclofenac sodium 1 % Gel
2 g TOPICAL TIDPRN PRN (Reason: apply to back of neck)
dapagliflozin propanediol [Farxiga] 10 mg Tablet
10 mg PO .SEE BELOW
Patient Comments:
08/03/2023, currently on hold per pt.; she is not sure when she is allowed to restart this med.
acetaminophen 325 MG tablet
325 mg PO HSPRN PRN (Reason: mild pain)
Held
aspirin 81 MG tablet,delayed release (DR/EC)
81 mg PO .SEE BELOW
Hold Instructions: Resume on 08/09/23. Resume on July
Patient Comments:
08/03/2023, currently on hold per pt., pt. states she is allowed to restart taking this med. on Wednesday (08/09/2023).
Discontinued
metoprolol succinate 25 MG tablet extended release 24 hr
25 mg PO HS
furosemide 40 mg Tablet
40 mg PO DAILY Qty: 30 0RF
potassium chloride 20 mEq Tablet Extended Release
20 meq PO DAILY@1100
clopidogrel 75 MG tablet
75 mg PO .SEE BELOW
Patient Comments:
08/03/2023, currently on hold per pt., pt. states she is allowed to restart taking this med. on Wednesday (08/09/2023).
Discharge Orders:
Discharge Patient (As Directed); Ordered 08/07/23
Ordered By: All Forte
Discharge Date and Time
Print Language: JAPANESE
--- NOTE | 2023-08-07 13:52 | PTCARENOTE ---
Pt discharged to [facility] transported by son Lorenzo. This RN gave son update on phone this am with patient's current condition. Report called to facility at approx 12:30 to [facility]. Pt in agreement to go to rehab at this time. Wheeled to door by PCT in
staxi chair with all belongings.
== END 2023-08-07 13:55 | DRG 920 ==
LOC: IMU 15:15
PROVIDERS: Registered Nurse; Surgery; ADMITTING PHYSICIAN Internal Medicine; CONSULT PHYSICIAN Internal Medicine Cardiovascular Disease; EMERGENCY PHYSICIAN Emergency Medicine; FAMILY PHYSICIAN Family Medicine
PROC: 0TP97DZ Removal of Intraluminal Device from Ureter, Via Natural or Artificial Opening (ICD-10-PCS; 2023-08-03)
PROC: 3E1K78Z Irrigation of Genitourinary Tract using Irrigating Substance, Via Natural or Artificial Opening (ICD-10-PCS; 2023-08-03)
DX: N99.820 Postprocedural hemorrhage of a genitourinary system organ or structure following a genitourinary system procedure (principal); D62 Acute posthemorrhagic anemia; T83.122A Displacement of indwelling ureteral stent, initial encounter; I13.0 Hypertensive heart and chronic kidney disease with heart failure and stage 1 through stage 4 chronic kidney disease, or unspecified chronic kidney disease; I50.32 Chronic diastolic (congestive) heart failure; D68.32 Hemorrhagic disorder due to extrinsic circulating anticoagulants; Y73.2 Prosthetic and other implants, materials and accessory gastroenterology and urology devices associated with adverse incidents; R31.9 Hematuria, unspecified; E78.00 Pure hypercholesterolemia, unspecified; I95.9 Hypotension, unspecified; R07.89 Other chest pain; M06.9 Rheumatoid arthritis, unspecified; K22.70 Barrett's esophagus without dysplasia; M81.0 Age-related osteoporosis without current pathological fracture; D35.1 Benign neoplasm of parathyroid gland; I65.23 Occlusion and stenosis of bilateral carotid arteries; N18.32 Chronic kidney disease, stage 3b; G89.29 Other chronic pain; M19.90 Unspecified osteoarthritis, unspecified site; I45.10 Unspecified right bundle-branch block; I08.3 Combined rheumatic disorders of mitral, aortic and tricuspid valves; M40.209 Unspecified kyphosis, site unspecified; K21.9 Gastro-esophageal reflux disease without esophagitis; Y83.8 Other surgical procedures as the cause of abnormal reaction of the patient, or of later complication, without mention of misadventure at the time of the procedure; Y92.9 Unspecified place or not applicable; I25.2 Old myocardial infarction; Z96.653 Presence of artificial knee joint, bilateral; Z87.442 Personal history of urinary calculi; Z79.02 Long term (current) use of antithrombotics/antiplatelets; Z95.3 Presence of xenogenic heart valve; Z79.82 Long term (current) use of aspirin; Z88.5 Allergy status to narcotic agent; Z88.8 Allergy status to other drugs, medicaments and biological substances; Z91.040 Latex allergy status; Z85.3 Personal history of malignant neoplasm of breast; G47.33 Obstructive sleep apnea (adult) (pediatric); Z86.73 Personal history of transient ischemic attack (TIA), and cerebral infarction without residual deficits
CPT/HCPCS: 76770; 80048; 80061; 81003; 81015; 83036; 83735; 84484; 85025; 85027; 86850; 86900; 86901; 87040; 93005; 93306; 96361; 96374; 97116; 97163; 97167; 97530; 97535; 99285

== ENCOUNTER → 2023-11-17 09:52 | Outpatient (REF) | payer MEDICARE, SELFPAY | LOC: RAD 09:52 | PROVIDERS: ATTENDING PHYSICIAN Physician Assistant; FAMILY PHYSICIAN Physician Assistant Medical | DX: M81.0 Age-related osteoporosis without current pathological fracture (principal) | CPT/HCPCS: 77080 ==

== ENCOUNTER → 2023-11-24 10:03 | Outpatient (REF) | payer MEDICARE, SELFPAY ==
[2023-11-24 11:14] LABS: % Basophils 0.6 % (0-2); % Eosinophils 1.9 % (0-6); % Immature Granulocytes 0.4 % (0-0.5); % Lymphocytes 20.3 % (20.5-51.1); % Neutrophils 65.8 % (42.2-75.2); Absolute Eosinophils 0.1 10^3/uL (0-0.7); Absolute Lymphocytes 1.4 10^3/uL (1.2-3.4); Absolute Monocytes 0.8 10^3/uL (0.1-0.6); Absolute Neutrophils 4.6 10^3/uL (1.4-6.5); Hematocrit 40.1 % (37.0-47.0); Hemoglobin 13.2 g/dL (12.0-16.0); Mean Corp Hgb Conc. 32.9 g/dL (33.0-37.0); Mean Corpuscular Hgb 29.1 pg (27.0-31.0); Mean Corpuscular Volume 88.5 fL (81.0-99.0); Mean Platelet Volume 9.7 fL (7.4-10.4); Nucleated Red Blood Cells % 0 %; Platelet Count 202 10^3/uL (130-400); Red Blood Cell Count 4.53 10^6/uL (4.20-5.40); Red Cell Dist. Width 14.1 % (11.5-14.5)
[2023-11-24 12:00] LABS: ALT (SGPT) 23 U/L (0-35); AST (SGOT) 31 U/L (14-36); Albumin 4.2 g/dl (3.5-5.0); Alkaline Phosphatase 69 U/L (38-126); Blood Urea Nitrogen 29 mg/dl (7-17); Calcium 9.9 mg/dl (8.4-10.2); Carbon Dioxide 36 mmol/L (22-30); Chloride 98 mmol/L (98-107); Glucose 90 mg/dl (70-99); Potassium 4.3 mmol/L (3.5-5.1); Sodium 139 mmol/L (135-145); Total Bilirubin 0.3 mg/dl (0.2-1.3); Total Protein 6.6 g/dl (6.3-8.2); eGFR 45.48
[2023-11-24 12:06] LABS: Erythrocyte Sed Rate 15 mm/hour (0-20)
[2023-11-24 13:46] LABS: C-Reactive Protein < 5.00 mg/L (0.0-10.00)
== END ==
LOC: REG 10:03
PROVIDERS: ATTENDING PHYSICIAN Physician Assistant; FAMILY PHYSICIAN Physician Assistant Medical
DX: E55.9 Vitamin D deficiency, unspecified (principal); M06.00 Rheumatoid arthritis without rheumatoid factor, unspecified site; M81.0 Age-related osteoporosis without current pathological fracture; Z51.81 Encounter for therapeutic drug level monitoring
CPT/HCPCS: 36415; 80053; 82306; 85025; 85652; 86140

== ENCOUNTER → 2023-12-08 10:08 | Outpatient (REF) | payer MEDICARE, SELFPAY | LOC: RAD 10:08 | PROVIDERS: ATTENDING PHYSICIAN Surgery Vascular Surgery; FAMILY PHYSICIAN Physician Assistant Medical | DX: I65.22 Occlusion and stenosis of left carotid artery (principal) | CPT/HCPCS: 93880 ==

== ENCOUNTER → 2024-03-08 10:44 | Outpatient (REF) | payer MEDICARE, SELFPAY | LOC: DHCBC/DCA 10:44 | PROVIDERS: ATTENDING PHYSICIAN Nurse Practitioner; FAMILY PHYSICIAN Physician Assistant Medical | DX: R07.9 Chest pain, unspecified (principal) | CPT/HCPCS: 78452; 93017; A9500; J2785 ==

== ENCOUNTER → 2024-03-15 10:14 | Outpatient (REF) | payer MEDICARE, SELFPAY ==
[2024-03-15 12:02] LABS: % Basophils 0.5 % (0-2); % Eosinophils 0.3 % (0-6); % Immature Granulocytes 0.3 % (0-0.5); % Lymphocytes 26.2 % (20.5-51.1); % Monocytes 9.1 % (1.7-9.3); % Neutrophils 63.6 % (42.2-75.2); Absolute Lymphocytes 1.5 10^3/uL (1.2-3.4); Absolute Monocytes 0.5 10^3/uL (0.1-0.6); Absolute Neutrophils 3.7 10^3/uL (1.4-6.5); Hematocrit 41.8 % (37.0-47.0); Hemoglobin 13.3 g/dL (12.0-16.0); Mean Corp Hgb Conc. 31.8 g/dL (33.0-37.0); Mean Corpuscular Volume 91.3 fL (81.0-99.0); Mean Platelet Volume 9.7 fL (7.4-10.4); Nucleated Red Blood Cells % 0 %; Platelet Count 220 10^3/uL (130-400); Red Blood Cell Count 4.58 10^6/uL (4.20-5.40); Red Cell Dist. Width 13.6 % (11.5-14.5); White Blood Cell Count 5.8 10^3/uL (4.8-10.8)
[2024-03-15 12:22] LABS: Erythrocyte Sed Rate 11 mm/hour (0-20)
[2024-03-15 13:34] LABS: ALT (SGPT) 18 U/L (0-35); AST (SGOT) 30 U/L (14-36); Albumin 4.6 g/dl (3.5-5.0); Alkaline Phosphatase 62 U/L (38-126); Blood Urea Nitrogen 20 mg/dl (7-17); Calcium 9.4 mg/dl (8.4-10.2); Carbon Dioxide 31 mmol/L (22-30); Chloride 100 mmol/L (98-107); Glucose 70 mg/dl (70-99); Iron 77 ug/dl (37-170); Potassium 4.1 mmol/L (3.5-5.1); Sodium 140 mmol/L (135-145); Total Bilirubin 0.5 mg/dl (0.2-1.3); Total Protein 6.9 g/dl (6.3-8.2); eGFR 50.48
[2024-03-15 13:39] LABS: C-Reactive Protein < 5.00 mg/L (0.0-10.00)
[2024-03-15 13:43] LABS: Percent Saturation 24 % (20-50); Total Iron Binding Capacity 311 ug/dl (265-497)
[2024-03-15 14:11] LABS: TSH Reflex To Free T4 1.57 uIU/ml (0.47-4.68)
[2024-03-15 14:15] LABS: Ferritin 35.9 ng/ml (11.1-264.0)
== END ==
LOC: RCS 10:14
PROVIDERS: ATTENDING PHYSICIAN Nurse Practitioner; FAMILY PHYSICIAN Physician Assistant Medical; OTHER PHYSICIAN Internal Medicine Rheumatology; REFERRING PHYSICIAN Physician Assistant
DX: R07.9 Chest pain, unspecified (principal); M06.00 Rheumatoid arthritis without rheumatoid factor, unspecified site; K92.1 Melena; R63.4 Abnormal weight loss
CPT/HCPCS: 36415; 80053; 82728; 83540; 83550; 84443; 85025; 85652; 86140; 93306

== ENCOUNTER → 2024-03-17 14:33 | Outpatient (REF) | payer MEDICARE, SELFPAY | LOC: REG 14:33 | PROVIDERS: ATTENDING PHYSICIAN Physician Assistant | DX: K92.1 Melena (principal) | CPT/HCPCS: 36415; 82270 ==

== ENCOUNTER → 2024-06-06 10:39 | Outpatient (REF) | payer MEDICARE, SELFPAY ==
[2024-06-06 11:16] LABS: % Basophils 0.7 % (0-2); % Eosinophils 0.3 % (0-6); % Immature Granulocytes 0.3 % (0-0.5); % Lymphocytes 23.9 % (20.5-51.1); % Monocytes 8.5 % (1.7-9.3); % Neutrophils 66.3 % (42.2-75.2); Absolute Basophils 0.1 10^3/uL (0-0.2); Absolute Lymphocytes 1.7 10^3/uL (1.2-3.4); Absolute Monocytes 0.6 10^3/uL (0.1-0.6); Absolute Neutrophils 4.7 10^3/uL (1.4-6.5); Hematocrit 43.8 % (37.0-47.0); Hemoglobin 13.8 g/dL (12.0-16.0); Mean Corp Hgb Conc. 31.5 g/dL (33.0-37.0); Mean Corpuscular Volume 88.8 fL (81.0-99.0); Mean Platelet Volume 9.6 fL (7.4-10.4); Nucleated Red Blood Cells % 0 %; Platelet Count 218 10^3/uL (130-400); Red Blood Cell Count 4.93 10^6/uL (4.20-5.40); Red Cell Dist. Width 14.5 % (11.5-14.5); White Blood Cell Count 7.1 10^3/uL (4.8-10.8)
[2024-06-06 11:35] LABS: Erythrocyte Sed Rate 2 mm/hour (0-20)
[2024-06-06 11:57] LABS: ALT (SGPT) 21 U/L (0-35); AST (SGOT) 28 U/L (14-36); Albumin 4.9 g/dl (3.5-5.0); Alkaline Phosphatase 78 U/L (38-126); Blood Urea Nitrogen 19 mg/dl (7-17); Calcium 9.5 mg/dl (8.4-10.2); Carbon Dioxide 30 mmol/L (22-30); Chloride 102 mmol/L (98-107); Glucose 87 mg/dl (70-99); Sodium 140 mmol/L (135-145); Total Bilirubin 0.8 mg/dl (0.2-1.3); Total Protein 7.3 g/dl (6.3-8.2)
[2024-06-06 12:14] LABS: Vitamin D, 25-OH*** 37.5 ng/mL (30-80)
== END ==
LOC: RAD 10:39
PROVIDERS: ATTENDING PHYSICIAN Internal Medicine Rheumatology; FAMILY PHYSICIAN Physician Assistant Medical
DX: M06.00 Rheumatoid arthritis without rheumatoid factor, unspecified site (principal); E55.9 Vitamin D deficiency, unspecified; M81.0 Age-related osteoporosis without current pathological fracture
CPT/HCPCS: 36415; 71101; 73010; 73030; 80053; 82306; 85025; 85652; 86140

== ENCOUNTER → 2024-08-22 10:47 | Outpatient (REF) | payer MEDICARE, SELFPAY | LOC: RAD 10:47 | PROVIDERS: ATTENDING PHYSICIAN Physician Assistant Medical; OTHER PHYSICIAN Internal Medicine Cardiovascular Disease | DX: R22.1 Localized swelling, mass and lump, neck (principal) | CPT/HCPCS: 76536 ==

== ENCOUNTER 2024-09-29 12:07 | Emergency (ER) | payer MEDICARE, SELFPAY ==
[2024-09-29 12:23] VITALS: BP 122/59
[2024-09-29 12:39] LABS: % Basophils 0.7 % (0-2); % Eosinophils 0.7 % (0-6); % Immature Granulocytes 0.3 % (0-0.5); % Lymphocytes 32.9 % (20.5-51.1); % Monocytes 9.2 % (1.7-9.3); % Neutrophils 56.2 % (42.2-75.2); Absolute Lymphocytes 1.9 10^3/uL (1.2-3.4); Absolute Monocytes 0.5 10^3/uL (0.1-0.6); Absolute Neutrophils 3.2 10^3/uL (1.4-6.5); Hematocrit 40.3 % (37.0-47.0); Hemoglobin 13.4 g/dL (12.0-16.0); Mean Corp Hgb Conc. 33.3 g/dL (33.0-37.0); Mean Corpuscular Hgb 29.3 pg (27.0-31.0); Mean Corpuscular Volume 88.2 fL (81.0-99.0); Mean Platelet Volume 9.8 fL (7.4-10.4); Nucleated Red Blood Cells % 0 %; Platelet Count 185 10^3/uL (130-400); Red Blood Cell Count 4.57 10^6/uL (4.20-5.40); Red Cell Dist. Width 14.1 % (11.5-14.5); White Blood Cell Count 5.8 10^3/uL (4.8-10.8)
[2024-09-29 12:51] LABS: ALT (SGPT) 17 U/L (0-35); AST (SGOT) 26 U/L (14-36); Albumin 4.4 g/dl (3.5-5.0); Alkaline Phosphatase 53 U/L (38-126); Blood Urea Nitrogen 14 mg/dl (7-17); Calcium 9.4 mg/dl (8.4-10.2); Carbon Dioxide 28 mmol/L (22-30); Chloride 107 mmol/L (98-107); Glucose 83 mg/dl (70-99); Potassium 4.9 mmol/L (3.5-5.1); Sodium 140 mmol/L (135-145); Total Bilirubin 0.5 mg/dl (0.2-1.3); Total Protein 6.9 g/dl (6.3-8.2); eGFR 56.25
[2024-09-29 13:02] LABS: Troponin I < 0.012 ng/ml
[2024-09-29 13:51] VITALS: BP 122/83
[2024-09-29 14:00] VITALS: BP 109/54
[2024-09-29 16:00] VITALS: BP 101/55
[2024-09-29 17:13] VITALS: BP 96/50
--- NOTE | 2024-09-29 17:39 | ED.GENMED ---
History of Present Illness
General
Chief Complaint: Dizziness
Time Seen by Provider: 09/29/24 13:39
History of Present Illness
History of Present Illness:
Note:
CHIEF COMPLAINT(S)
Dizziness and chest discomfort.
HISTORY OF PRESENT ILLNESS
The patient is an 84-year-old female with a history of carotid vascular disease who presents with dizziness and chest discomfort. The dizziness began approximately six months ago and is described as a sensation of the room spinning. The patient
reports becoming dizzy to the point of passing out when lying flat. She also mentions that the dizziness occurs randomly and is not provoked by specific actions. Additionally, she experiences headaches associated with the dizziness. The chest
discomfort started about two months ago and is located in an area that is tender to touch and radiates towards the ear. She describes pain that hinders her vision at the side. The patients dizziness and associated symptoms have impacted her ability
to lay down or turn her head without difficulty. Of note, her prior to the onset of her symptoms.
EXTERNAL RECORDS REVIEWED
Upon reviewing the patients chart, it is noted that she has significant vascular disease including carotid artery narrowing and possibly issues with other arteries in the neck, observed during previous evaluations.
CHRONIC MEDICAL CONDITIONS SIGNIFICANTLY AFFECTING CARE
The patient has a history of significant vascular disease, including carotid artery stenosis and narrowing of other neck arteries.
PHYSICAL EXAM
- GEN: WDWN, NAD
- Cardio: RRR no m/r/g
- Pulm: Lungs CTAB
- Extremities: Radial pulses 2+ bilat
- Neurological: No abnormalities in cranial nerves 2 through 12, which are grossly intact. Extremity strength is intact in all four limbs with no sensory deficits.
- Nursing notes reviewed and vital signs reviewed.
PLAN
1. Order a CT angiogram of the head and neck to evaluate vascular structures and compare them to previous imaging from three years ago.
2. If the CT angiogram is inconclusive, consider evaluation by a physical therapist to assess for benign positional vertigo and potential vestibular therapy.
DIFFERENTIAL DIAGNOSIS
The Differential Diagnosis includes, in no particular order and is not limited to:
1. Cerebrovascular insufficiency
2. Benign paroxysmal positional vertigo
3. Vestibular migraine
4. Transient ischemic attack
5. Carotid artery stenosis progression
6. Inner ear disorder
7. Orthostatic hypotension
8. Cardiac arrhythmia
9. Labyrinthitis
10. Temporal arteritis
Disposition:
DIAGNOSIS
- Dizziness (R42)
- Chest pain (R07.9)
- Failure to thrive (R62.7)
SUMMARY OF ENCOUNTER
An 84-year-old female presented with dizziness, intermittent chest pains, and a decline in overall well-being over the past six months, which coincides with the of her spouse. Her medical history includes significant carotid and
vertebrovascular disease. A CT angiography was conducted to rule out neurovascular causes for her symptoms. The patient denies severe vertiginous symptoms and can ambulate with assistance. She acknowledged inadequate nutrition and hydration,
potentially contributing to her current condition.
CONSIDERATION FOR ADMISSION
The possibility of admitting the patient was considered due to her complex symptoms and history. However, imaging and labs were found to be unremarkable, thus she was managed as an outpatient.
ASSESSMENT
The patient presents with symptoms that may be linked to insufficient nutrition and dehydration compounded by a history of vascular disease and recent emotional stress after the loss of her spouse.
PLAN
- Referral to outpatient physical therapy for assessment and management of potential vestibular issues.
- Patient was provided with resources for therapy following evaluation by crisis services to address potential psychological components.
INDEPENDENT INTERPRETATION OF TESTS
CT angiography showed no significant neurovascular complications attributable to her symptoms.
PATIENT EDUCATION AND COUNSELING
The patient was counseled on the importance of adequate nutrition and hydration as part of managing her symptoms. Information on outpatient therapy options was provided to support emotional and psychological well-being.
FOLLOW-UP INSTRUCTIONS
The patient is advised to follow up with outpatient therapy services provided by the crisis team and to engage with physical therapy for further assessment. It is crucial to address nutrition and hydration at home and to schedule regular follow-ups
with her primary care physician.
MEDICAL DECISION MAKING
The case involved assessing both acute and chronic aspects of the patients condition, factoring in her vascular history and emotional stress. A CT angiography was chosen to rule out vascular causes, and the results drove the decision to manage her
case on an outpatient basis. The need for further therapeutic intervention, particularly addressing physical and psychological health, was identified to aid recovery. The patients current medication and nutritional status were reviewed, and
comprehensive management recommendations were discussed.
Past History
Past History
ED Past Medical History: Cancer, CVA, GERD, HTN, Hypercholesterolemia, [place] and Valvular disease
ED Past Surgical History: Cardiac, Gynecological, Orthopedic (Bilateral total knee replacements, left rotator cuff repair) and Other (Carotid endarterectomy)
Social History
Tobacco: Non-smoker
Alcohol: None
Drug: None
Personal:
Living: with family
Family History
Family History: Unable to obtain
Phy Exam
Physical Exam
Physical Exam:
.
Course
Orders/Labs/Results
Orders:
Orders
09/29/24 12:08
Electrocardiogram (*1) Urgent
Reason for Study: Vertigo / Dizzy
Other Reason for Exam: marianne
EKG- Treatment ONCE
09/29/24 12:29
Complete Blood Count/With Diff Urgent
Comprehensive Metabolic Panel Urgent
Troponin I Urgent
09/29/24 14:14
CT Head & Neck Angio W/wo IV Urgent
Comment:
Reason For Exam: dizziness/headache, carotid/vertebral stenosis
09/29/24 17:39
Crisis Consult Urgent
Reason for Consult: depression, outpatient resources
09/29/24 12:29
09/29/24 12:29
Vital Signs
Initial and Last Documented VS:
Initial Vital Signs
Temp Pulse Resp Pulse Ox
97.5 F 63 20 98
09/29/24 12:14 09/29/24 12:14 09/29/24 12:14 09/29/24 12:14
Last Documented Vital Signs
Temp Pulse Resp BP Pulse Ox
97.5 F 66 20 102/54 100
09/29/24 12:14 09/29/24 18:15 09/29/24 18:15 09/29/24 18:00 09/29/24 18:15
*Critical Care Note
Total Time (30-74mins, 75-104mins- exclusive of procedures): Not Applicable
ED Attending Note
-
Portions of this chart may have been created with voice recognition software.� Occasional wrong word or��sound alike� substitutions may have occurred due to the inherent limitations of voice recognition software.
Discharge Plan
Departure
Patient Disposition: Home (Routine Discharge)
Date of Disposition: 09/29/24
Time of Disposition: 17:40
Patient with high blood pressure during this ER visit?: No
Discharge Problem:
Dizziness, Depression
Instructions: Dizziness, Nonvertigo, (DC)
Prescriptions:
No Action
hydroxychloroquine 200 MG tablet
200 mg PO BID
rosuvastatin 10 MG tablet
10 mg PO Q48H@1800
rosuvastatin 20 mg Tablet
20 mg PO Q48H@1800
aspirin 81 MG tablet,delayed release (DR/EC)
81 mg PO .SEE BELOW
Patient Comments:
08/03/2023, currently on hold per pt., pt. states she is allowed to restart taking this med. on Wednesday (08/09/2023).
metronidazole 1 % Gel
1 applic TOPICAL DAILY PRN (Reason: apply to back of neck)
diclofenac sodium 1 % Gel
2 g TOPICAL TIDPRN PRN (Reason: apply to back of neck)
dapagliflozin propanediol [Farxiga] 10 mg Tablet
10 mg PO .SEE BELOW
Patient Comments:
08/03/2023, currently on hold per pt.; she is not sure when she is allowed to restart this med.
acetaminophen 325 MG tablet
325 mg PO HSPRN PRN (Reason: mild pain)
polyethylene glycol 3350 [HealthyLax] 17 gram Powder In Packet
17 g PO DAILYPRN PRN (Reason: constipation) Qty: 30 0RF
sennosides-docusate sodium [Stool Softener-Stimulant Laxat] 8.6-50 mg Tablet
1 tab PO BIDPRN PRN (Reason: constipation) Qty: 20 0RF
midodrine 5 mg tablet
5 mg PO PRN PRN (Reason: low BP) Qty: 20 0RF
Referrals:
Naty Mcclelland PA-C [Family Provider, Family Practice]
Activity Restrictions/Additional Instructions:
Follow-up with a therapist as suggested by our crisis department
Follow-up with your primary care physician if the symptoms do not improve
Follow-up with physical therapy as we discussed
Interventions
Interventions:
*Risk Screen - Suicide Last Done: 09/29/24 12:14
*Neglect/Abuse Screening Last Done: 09/29/24 12:14
*ED- Fall Risk Assessment Last Done: 09/29/24 14:12
*Nursing Disposition Last Done: 09/29/24 18:52
ED- Cardiac Assessment Last Done: 09/29/24 14:28
ED- Neurological Assessment Last Done: 09/29/24 14:28
Discharge Date and Time
Discharge Date/Time: 09/29/24 18:52
Print Language: BENGALI
[2024-09-29 18:00] VITALS: BP 102/54
== END 2024-09-29 18:52 | disposition home or self-care (01) ==
LOC: EMR 12:07
PROVIDERS: EMERGENCY PHYSICIAN Emergency Medicine; FAMILY PHYSICIAN Physician Assistant Medical
DX: R42 Dizziness and giddiness (principal); R07.89 Other chest pain; F32.A Depression, unspecified; E78.00 Pure hypercholesterolemia, unspecified; I10 Essential (primary) hypertension; R62.7 Adult failure to thrive; Z86.73 Personal history of transient ischemic attack (TIA), and cerebral infarction without residual deficits; Z96.653 Presence of artificial knee joint, bilateral
CPT/HCPCS: 99284; 70496; 70498; 80053; 84484; 85025; 93005; Q9967

== ENCOUNTER 2024-10-12 13:15 | Outpatient (RCR) | payer MEDICARE, SELFPAY | END 2024-10-12 23:59 | disposition home or self-care (01) | LOC: RPT 13:15 | PROVIDERS: ATTENDING PHYSICIAN Physician Assistant Medical | DX: R42 Dizziness and giddiness (principal); R26.2 Difficulty in walking, not elsewhere classified; R29.6 Repeated falls | CPT/HCPCS: 97112; 97162 ==

== ENCOUNTER → 2024-10-31 09:54 | Outpatient (REF) | payer MEDICARE, SELFPAY | LOC: RAD 09:54 | PROVIDERS: ATTENDING PHYSICIAN Physician Assistant Medical | DX: M54.50 Low back pain, unspecified (principal) | CPT/HCPCS: 72110; 73502 ==

== ENCOUNTER 2024-11-06 10:15 | Outpatient (RCR) | payer MEDICARE, SELFPAY | END 2024-11-16 12:05 | disposition home or self-care (01) | LOC: RPT 10:15 | PROVIDERS: ATTENDING PHYSICIAN Physician Assistant Medical | DX: R42 Dizziness and giddiness (principal); R29.6 Repeated falls (principal); H81.10 Benign paroxysmal vertigo, unspecified ear; Z73.6 Limitation of activities due to disability; R26.2 Difficulty in walking, not elsewhere classified | CPT/HCPCS: 97110; 97112; 97116 ==

== ENCOUNTER → 2024-12-13 10:21 | Outpatient (REF) | payer MEDICARE, SELFPAY | LOC: RAD 10:21 | PROVIDERS: ATTENDING PHYSICIAN Surgery Vascular Surgery; FAMILY PHYSICIAN Physician Assistant Medical | DX: I65.23 Occlusion and stenosis of bilateral carotid arteries (principal) | CPT/HCPCS: 93880 ==

== ENCOUNTER 2025-01-15 12:33 | Outpatient (RCR) | payer MEDICARE, SELFPAY | END 2025-01-15 23:59 | disposition home or self-care (01) | LOC: RPT 12:33 | PROVIDERS: ATTENDING PHYSICIAN Physician Assistant Medical | DX: M54.50 Low back pain, unspecified (principal); Z73.6 Limitation of activities due to disability; M62.81 Muscle weakness (generalized); R26.89 Other abnormalities of gait and mobility | CPT/HCPCS: 97110; 97112; 97116; 97162; 97530 ==

== ENCOUNTER 2025-02-12 07:52 | Outpatient (RCR) | payer MEDICARE, SELFPAY | END 2025-02-12 23:59 | disposition home or self-care (01) | LOC: RPT 07:52 | PROVIDERS: ATTENDING PHYSICIAN Physician Assistant Medical | DX: M54.50 Low back pain, unspecified (principal); Z73.6 Limitation of activities due to disability; M62.81 Muscle weakness (generalized); R26.89 Other abnormalities of gait and mobility; R26.2 Difficulty in walking, not elsewhere classified | CPT/HCPCS: 97110; 97112; 97116; 97530 ==

== ENCOUNTER 2025-03-05 11:50 | Outpatient (RCR) | payer MEDICARE, SELFPAY | END 2025-03-06 05:58 | disposition home or self-care (01) | LOC: RPT 11:50 | PROVIDERS: ATTENDING PHYSICIAN Physician Assistant Medical | DX: M54.50 Low back pain, unspecified (principal); Z73.6 Limitation of activities due to disability; M62.81 Muscle weakness (generalized); R26.89 Other abnormalities of gait and mobility; R26.2 Difficulty in walking, not elsewhere classified | CPT/HCPCS: 97110; 97112; 97116; 97530 ==

== ENCOUNTER → 2025-03-06 11:45 | Outpatient (REF) | payer MEDICARE, SELFPAY | LOC: RAD 11:45 | PROVIDERS: ATTENDING PHYSICIAN Physician Assistant Medical | DX: G44.52 New daily persistent headache (NDPH) (principal); S09.90XA Unspecified injury of head, initial encounter; Z79.01 Long term (current) use of anticoagulants | CPT/HCPCS: 70450 ==

== ENCOUNTER 2025-03-23 11:23 | Emergency (ER) | payer MEDICARE, SELFPAY ==
[2025-03-23 11:25] VITALS: BP 138/65
[2025-03-23 11:55] VITALS: BP 126/61
[2025-03-23 11:58] VITALS: BP 126/61; BMI 28.3
[2025-03-23 12:00] VITALS: BP 117/58
--- NOTE | 2025-03-23 12:02 | ED.GENMED ---
History of Present Illness
General
Chief Complaint: Headache
Source: patient
Exam Limitations: none
Time Seen by Provider: 03/23/25 12:02
Nursing documentation reviewed up to this point in time: agreed with
History of Present Illness
History of Present Illness:
Patient is an 84-year-old female with past medical history of left carotid enterectomy hypertension hyperlipidemia sleep apnea degenerative joint disease who presents to the ER for evaluation. Patient reports over the past month she has hit her
head several times on the right with and last hit the right side of her head 2 weeks ago. She did have an outpatient CAT scan which was ordered by her family doctor and that was negative(03/06). She also completed steroids however that did not
relieve her symptoms.
Since then she complains of right scalp pain which radiates to front scalp. She denies any actual headache. She noticed last night when she was watching TV that she had blurry vision for several minutes which resolved and then episode happened
again this morning. She is not nauseous with this.
Past History
Past History
ED Past Medical History: Cancer, CVA, GERD, HTN, Hypercholesterolemia, [place] and Valvular disease
ED Past Surgical History: Cardiac, Gynecological, Orthopedic (Bilateral total knee replacements, left rotator cuff repair) and Other (Carotid endarterectomy)
Social History
Tobacco: Non-smoker
Alcohol: None
Drug: None
Personal:
Living: with family
Family History
Family History: Unable to obtain
Phy Exam
General Physical Exam
General Presentation: no apparent distress
General age: appears stated age
General Skin: warm and dry
General Habitus: elderly
General Mental: alert
General Hydration: appears well hydrated
ENT Exam
ENT Exam: EOMI
Eye Exam
Eye Exam: PERRL, EOMI, conjunctiva normal and visual hartley normal
Eye Exam General: PERRL: bilateral and EOM intact: bilateral
Pupil Exam: Bilateral: round and reactive
Neurological Exam
Neurological Exam: alert and oriented x3
Musculoskeletal Exam
Musculoskeletal Exam: other (Normal exam to head and scalp tender to the right lateral forehead however no erythema or rash no swelling no hematoma nontender over temporal area)
Skin Exam
Skin Exam: normal color and warm/dry
Psychiatric Exam
Psychiatric Exam: normal mood/affect
Course
Orders/Labs/Results
Orders:
Orders
03/23/25 11:57
CT Head W/o Iv Contrast Urgent
Comment:
Reason For Exam: head strike on thinners
03/23/25 11:59
EKG [Electrocardiogram (*1)] Urgent
Reason for Study: Vertigo / Dizzy
EKG- Treatment ONCE
03/23/25 12:09
Complete Blood Count/With Diff Urgent
Comprehensive Metabolic Panel Urgent
Magnesium Urgent
PTT Urgent
Prothrombin Time Urgent
Abnormal Lab Results
03/23/25
12:09
RBC 4.19 L 10^6/uL
(4.20-5.40)
Hct 36.7 L %
(37.0-47.0)
Absolute Monos (auto) 0.7 H 10^3/uL
(0.1-0.6)
Monocytes % 9.8 H %
(1.7-9.3)
BUN 29 H mg/dl
(7-17)
Creatinine 1.1 H mg/dL
(0.6-1.0)
03/23/25 12:09
03/23/25 12:09
Vital Signs
Initial and Last Documented VS:
Initial Vital Signs
Temp Pulse Resp BP Pulse Ox
97.8 F 64 18 138/65 100
03/23/25 11:25 03/23/25 11:25 03/23/25 11:25 03/23/25 11:25 03/23/25 11:25
Last Documented Vital Signs
Temp Pulse Resp BP Pulse Ox
97.5 F 60 19 126/61 100
03/23/25 11:58 03/23/25 11:58 03/23/25 11:58 03/23/25 11:58 03/23/25 13:23
Title Curator consulted with Physician
Title Curator consulted with physician?: Yes
Name of Physician Consulted: Ursula
MDM/Problems Addressed
Differential Diagnosis Includes:
Not limited to head injury less likely temporal arteritis less likely intracranial hemorrhage
MDM/Problems Addressed:
84 yr old female presents for head pain since hitting her head several times with a migraine within the past month. Injury occurred in February. She was seen by her primary doctor at the time had an outpatient CAT scan which was negative.
Patient denies any actual headache but complains of pain to the right lateral head into her forehead. She denies any fever chills nausea vomiting. On exam she is no acute distress there is no rash area is tender to touch however she is not tender
over the temporal region. Exam not consistent with temporal arteritis.
Patient is very well-appearing.
Pain is very superficial again not a headache. She has had episode of blurry vision last night and tonight will have patient follow-up with ophthalmology and neurology however no acute concerning symptoms here in the ER.
*Radiology
Radiology exam reviewed: radiology read reviewed
*Pulse Oximetry
SaO2: 100
Oxygen Mode of Delivery: Room air
Patient hypoxic: no
*Critical Care Note
Total Time (30-74mins, 75-104mins- exclusive of procedures): Not Applicable
ED Attending Note
-
Portions of this chart may have been created with voice recognition software.� Occasional wrong word or��sound alike� substitutions may have occurred due to the inherent limitations of voice recognition software.
Discharge Plan
Departure
Patient Disposition: Home (Routine Discharge)
Date of Disposition: 03/23/25
Time of Disposition: 13:43
Patient with high blood pressure during this ER visit?: Yes
Condition: Fair
Covid-19: Not Applicable
Discharge Problem:
Head pain
Instructions: BLOOD PRESSURE
Prescriptions:
No Action
hydroxychloroquine 200 MG tablet
200 mg PO BID
rosuvastatin 10 MG tablet
10 mg PO Q48H@1800
rosuvastatin 20 mg Tablet
20 mg PO Q48H@1800
aspirin 81 MG tablet,delayed release (DR/EC)
81 mg PO .SEE BELOW
Patient Comments:
08/03/2023, currently on hold per pt., pt. states she is allowed to restart taking this med. on Wednesday (08/09/2023).
metronidazole 1 % Gel
1 applic TOPICAL DAILY PRN (Reason: apply to back of neck)
diclofenac sodium 1 % Gel
2 g TOPICAL TIDPRN PRN (Reason: apply to back of neck)
dapagliflozin propanediol [Farxiga] 10 mg Tablet
10 mg PO .SEE BELOW
Patient Comments:
08/03/2023, currently on hold per pt.; she is not sure when she is allowed to restart this med.
acetaminophen 325 MG tablet
325 mg PO HSPRN PRN (Reason: mild pain)
polyethylene glycol 3350 [HealthyLax] 17 gram Powder In Packet
17 g PO DAILYPRN PRN (Reason: constipation) Qty: 30 0RF
sennosides-docusate sodium [Stool Softener-Stimulant Laxat] 8.6-50 mg Tablet
1 tab PO BIDPRN PRN (Reason: constipation) Qty: 20 0RF
midodrine 5 mg tablet
5 mg PO PRN PRN (Reason: low BP) Qty: 20 0RF
Referrals:
Frankie Skaggs MD [Active, Neurology]
Naty Mcclelland PA-C [Family Provider, Family Practice]
Aleksandra Block MD [Active, Ophthalmology]
Activity Restrictions/Additional Instructions:
As discussed please continue to follow-up with family doctor for reevaluation of symptoms. In addition as recommended follow with both ophthalmology as well as neurology. You may continue to take Tylenol. Return if any worsening of symptoms
Interventions
Interventions:
*Risk Screen - Suicide Last Done: 03/23/25 11:25
*General Assessment Last Done: 03/23/25 11:58
*Neglect/Abuse Screening Last Done: 03/23/25 11:58
*ED COVID-19 Vaccine History Last Done: 03/23/25 11:58
*ED Influenza Vaccine History Last Done: 03/23/25 11:58
[facility] [place] Fall Risk Assessment Tool Last Done: 03/23/25 11:58
ED- Neurological Assessment Last Done: 03/23/25 11:58
Discharge Date and Time
Print Language: CZECH
[2025-03-23 12:24] LABS: Hematocrit 36.7 % (37.0-47.0); Hemoglobin 12.2 g/dL (12.0-16.0); Mean Corp Hgb Conc. 33.2 g/dL (33.0-37.0); Mean Corpuscular Volume 87.6 fL (81.0-99.0); Nucleated Red Blood Cells % 0 %; Platelet Count 180 10^3/uL (130-400); Red Cell Dist. Width 13.7 % (11.5-14.5)
[2025-03-23 12:29] LABS: INR 0.94; PT 12.7 Sec (11.4-14.6)
[2025-03-23 12:30] LABS: APTT 29.3 Sec (23.4-35.0)
[2025-03-23 12:32] LABS: ALT (SGPT) 17 U/L (0-35); AST (SGOT) 26 U/L (14-36); Albumin 4.3 g/dl (3.5-5.0); Alkaline Phosphatase 69 U/L (38-126); Blood Urea Nitrogen 29 mg/dl (7-17); Calcium 9.8 mg/dl (8.4-10.2); Carbon Dioxide 30 mmol/L (22-30); Chloride 104 mmol/L (98-107); Estimated Creatinine Clearance 33 ml/min; Glucose 88 mg/dl (70-99); Magnesium 1.9 mg/dl (1.6-2.3); Potassium 4.1 mmol/L (3.5-5.1); Sodium 136 mmol/L (135-145); Total Protein 7.0 g/dl (6.3-8.2); eGFR 50.17
== END 2025-03-23 14:09 | disposition home or self-care (01) ==
LOC: EMR 11:23
PROVIDERS: Emergency Medicine; EMERGENCY PHYSICIAN Emergency Medicine; FAMILY PHYSICIAN Physician Assistant Medical
DX: R51.9 Headache, unspecified (principal); I10 Essential (primary) hypertension; E78.00 Pure hypercholesterolemia, unspecified; G47.30 Sleep apnea, unspecified; K21.9 Gastro-esophageal reflux disease without esophagitis; I25.2 Old myocardial infarction; I38 Endocarditis, valve unspecified; M19.90 Unspecified osteoarthritis, unspecified site; Z86.73 Personal history of transient ischemic attack (TIA), and cerebral infarction without residual deficits; Z96.653 Presence of artificial knee joint, bilateral
CPT/HCPCS: 99284; 70450; 80053; 83735; 85025; 85610; 85730; 93005